=== PATIENT | male | born 1930 | race African-American/Black ===

== ENCOUNTER 2019-01-01 02:28 | Inpatient (IN) | payer BC, OTHER ==
[~2019-01-01] VITALS: Ht 175.3 cm; Wt 100.2 kg
[~2019-01-01 02:28] MED LIST: BREO INH; ERYT-109 PO; INCRUSE INH; IPRA0.2S51 NEB; METF-416 PO; MONT10TA24 PO; PRO-AIR; TAMS0.4C31 PO; [UNRECOGNIZED DRUG - CODE] PO
[2019-01-01] MEDS ORDERED: IPRATROPIUM BROMIDE (0.02%) 0.5MG/2.5ML NEB HHN STA (03:14)
[2019-01-01] MEDS ORDERED: ALBUTEROL (0.083%) 2.5MG/3ML NEB HHN STA (03:14)
[2019-01-01] MEDS ORDERED: FUROSEMIDE 40MG/4ML VIAL IV ONE (03:15)
[2019-01-01 04:11] LABS: CHLORIDE 109 mEq/L (98-107)
[2019-01-01 04:15] LABS: BASOPHILS % 0.5 % (0.0-2.0); EOSINOPHILS % 1.6 % (0.0-5.0); HEMATOCRIT. 48.1 % (42.0-52.0); LYMPHOCYTES % 16.1 % (20.0-50.0); MEAN CORPUSCULAR VOLUME 93.4 fL (80.0-94.0); MEAN PLATELET VOLUME 9.3 fl (7.4-10.4); MONOCYTES % 8.8 % (2.0-8.0); PLATELET 159 x1000/uL (130-400); RED BLOOD CELL COUNT 5.15 mill/uL (4.7-6.1); RED CELL DISTRIBUTION WIDTH 17.3 % (11.6-14.6)
[2019-01-01] MEDS ORDERED: MAGNESIUM/ALUMINUM HYDROXIDE/SIMETHICONE 30ML UDC PO PRN (10:45)
[2019-01-01] MEDS ORDERED: DEXTROSE 50% WATER 50ML SYRINGE IV PRN (10:45)
[2019-01-01] MEDS ORDERED: NA PHOS,M-B/NA PHOS,DI-BA ENEMA 118ML PR PRN (10:45)
[2019-01-01] MEDS ORDERED: GUAIFENESIN 200MG/10ML SUGAR FREE UDC PO PRN (10:45)
[2019-01-01] MEDS ORDERED: ONDANSETRON HCL 4MG/2ML INJ IV PRN (10:45)
[2019-01-01] MEDS ORDERED: HYDROCODONE/ACETAMINOPHEN 5/325MG TABLET PO PRN (10:45)
[2019-01-01] MEDS ORDERED: CLONIDINE 0.1MG TABLET PO PRN (10:45)
[2019-01-01] MEDS ORDERED: LORAZEPAM 0.5MG TABLET PO PRN (10:45)
[2019-01-01] MEDS ORDERED: ACETAMINOPHEN 325MG TABLET PO PRN (10:45)
[2019-01-01] MEDS ORDERED: ACETAMINOPHEN 650MG SUPP PR PRN (10:45)
[2019-01-01] MEDS: METHYLPREDNISOLONE SOD SUCC 40 MG/ML VIAL IV SCH ×2 (10:45→22:54)
[2019-01-01] MEDS ORDERED: DOCUSATE SODIUM 100MG CAPSULE PO PRN (10:45)
[2019-01-01] MEDS ORDERED: DIPHENHYDRAMINE 50MG/ML VIAL IV PRN (10:45)
[2019-01-01] MEDS ORDERED: IPRATROPIUM/ALBUTEROL 0.5-3(2.5)MG/3ML NEB INH PRN (10:45)
[2019-01-01 11:59] LABS: BG BASE EXCESS -0.4 mmol/L (-2.0-2.0); BG CARBOXYHEMOGLOBIN 1.6 % (0.5-1.5); BG DEOXYHEMOGLOBIN 12.7 % (0.0-5.0); BG HCO3 ACT 22.6 mmol/L (22.0-26.0); BG METHEMOGLOBIN 0.1 % (0.0-1.5); BG OXYGEN SATURATION 87.1 % (92.0-98.5); BG OXYHEMOGLOBIN 85.6 % (94.0-97.0); BG PCO2 32.6 mmHg (35.0-45.0); BG PH 7.458 (7.350-7.450); BG PO2 51.2 mmHg (75.0-100.0); BG SAMPLE SITE RIGHT RADIAL; BG TOTAL HEMOGLOBIN 15.6 g/dL (12.0-18.0); BG VENT MODE NASAL CANNULA
[2019-01-01] MEDS ORDERED: LACTULOSE 20G/30ML UDC PO NR (13:45)
[2019-01-01] MEDS ORDERED: LACTULOSE 20G/30ML UDC PO PRN (13:45)
[2019-01-01 18:03] LABS: CREATINE KINASE 81 IU/L (39-308)
[2019-01-01 18:04] LABS: CREATINE KINASE MB FRACTION 1.6 ng/mL (0.5-3.6)
[2019-01-01 20:17] LABS: INR 1.1; PROTHROMBIN TIME 11.4 sec (9.1-11.1)
[2019-01-01 21:00] VITALS: BP 157/92
[2019-01-01] MEDS: BLOOD SUGAR DIAGNOSTIC STRIP TEST SCH (21:00)
[2019-01-01] MEDS: GUAIFENESIN 600MG ER TABLET PO SCH (22:51)
[2019-01-01] MEDS: MONTELUKAST SODIUM 10MG TABLET PO SCH (22:52)
[2019-01-01] MEDS: AMLODIPINE 2.5MG TABLET PO SCH (22:53)
[2019-01-01] MEDS: INSULIN LISPRO 100 UNITS/ML SUBCUT SCH (22:57)
[2019-01-02] VITALS: BP 158/81
[2019-01-02 00:44] LABS: CREATINE KINASE 81 IU/L (39-308); CREATINE KINASE MB FRACTION 1.7 ng/mL (0.5-3.6)
[2019-01-02] MEDS ORDERED: CARV6.2548 PO (00:57)
[2019-01-02] MEDS ORDERED: ASPI-1159 PO (00:58)
[2019-01-02] MEDS ORDERED: CHOL100022 PO (01:00)
[2019-01-02] MEDS ORDERED: FURO-151 PO (01:02)
[2019-01-02] MEDS ORDERED: IPRA4AER INH (01:04)
[2019-01-02] MEDS: IPRATROPIUM/ALBUTEROL 0.5-3(2.5)MG/3ML NEB INH SCH ×4 (03:01→20:31)
[2019-01-02 04:00] VITALS: BP 155/93
[2019-01-02 04:44] LABS: CLARITY URINE CLEAR (CLEAR); COLOR URINE DARK YELLOW (YELLOW); KETONES URINE TRACE (NEGATIVE); LEUKOCYTE ESTERASE URINE TRACE (NEGATIVE); NITRITE URINE NEGATIVE (NEGATIVE); OCCULT BLOOD URINE NEGATIVE (NEGATIVE); PROTEIN URINE 1+ (NEGATIVE); SPECIFIC GRAVITY URINE 1.027 (1.005-1.030)
[2019-01-02 05:04] LABS: *BARBITURATES SCREEN URINE NEGATIVE (NEGATIVE); *BENZODIAZEPINES SCREEN URINE NEGATIVE (NEGATIVE); *COCAINE SCREEN URINE NEGATIVE (NEGATIVE)
[2019-01-02 05:05] LABS: *AMPHETAMINES SCREEN URINE NEGATIVE (NEGATIVE); CANNABINOID URINE SCREEN NEGATIVE (NEGATIVE); METHADONE URINE SCREEN NEGATIVE (NEGATIVE); OPIATES URINE SCREEN NEGATIVE (NEGATIVE); PHENCYCLIDINE URINE SCREEN NEGATIVE (NEGATIVE)
[2019-01-02] MEDS: PANTOPRAZOLE 40MG DR TABLET PO SCH (06:27)
[2019-01-02] MEDS: BLOOD SUGAR DIAGNOSTIC STRIP TEST SCH ×4 (06:34→21:38)
[2019-01-02 07:04] LABS: HEMATOCRIT. 48.7 % (42.0-52.0); HEMOGLOBIN. 16.2 g/dL (14.0-18.0); MEAN CORPUSCULAR HEMOGLOBIN 30.8 pg (28.0-32.0); MEAN CORPUSCULAR VOLUME 92.7 fL (80.0-94.0); MEAN PLATELET VOLUME 9.3 fl (7.4-10.4); PLATELET 176 x1000/uL (130-400); RED BLOOD CELL COUNT 5.26 mill/uL (4.7-6.1); RED CELL DISTRIBUTION WIDTH 17.1 % (11.6-14.6)
[2019-01-02] MEDS: INSULIN LISPRO 100 UNITS/ML SUBCUT SCH ×4 (07:50→21:00)
[2019-01-02 07:52] LABS: CHLORIDE 106 mEq/L (98-107)
[2019-01-02 07:59] LABS: HDL CHOLESTEROL 52 mg/dL (40-59)
[2019-01-02 08:00] VITALS: BP 159/89
[2019-01-02 08:02] LABS: LDL CHOLESTEROL 109 mg/dL (5-100)
[2019-01-02 08:03] LABS: T4 FREE 1.15 ng/dL (0.76-1.46)
[2019-01-02] MEDS: ASPIRIN 81MG EC TABLET PO SCH (08:19)
[2019-01-02] MEDS: GUAIFENESIN 600MG ER TABLET PO SCH ×2 (08:19→21:36)
[2019-01-02] MEDS: METHYLPREDNISOLONE SOD SUCC 40 MG/ML VIAL IV SCH ×2 (08:19→21:36)
[2019-01-02] MEDS: AMLODIPINE 2.5MG TABLET PO SCH ×2 (08:19→21:37)
[2019-01-02] MEDS: FUROSEMIDE 40MG/4ML VIAL IV SCH (08:22)
[2019-01-02] MEDS ORDERED: ENOXAPARIN 40MG/0.4ML SYR SUBCUT SCH (09:00)
[2019-01-02 12:00] VITALS: BP 153/76
[2019-01-02 13:34] LABS: PLATELET ESTIMATE NORMAL
[2019-01-02 17:58] VITALS: BP 163/94
[2019-01-02] MEDS: MONTELUKAST SODIUM 10MG TABLET PO SCH (18:13)
[2019-01-02 20:00] VITALS: BP 114/67
[2019-01-02] MEDS: ENOXAPARIN 30MG/0.3ML SYR SUBCUT SCH (21:37)
[2019-01-03] VITALS: BP 141/81
[2019-01-03] MEDS: IPRATROPIUM/ALBUTEROL 0.5-3(2.5)MG/3ML NEB INH SCH ×4 (02:29→22:33)
[2019-01-03 04:00] VITALS: BP 148/82
[2019-01-03] MEDS: PANTOPRAZOLE 40MG DR TABLET PO SCH (06:24)
[2019-01-03] MEDS: BLOOD SUGAR DIAGNOSTIC STRIP TEST SCH ×4 (06:24→21:00)
[2019-01-03] MEDS: INSULIN LISPRO 100 UNITS/ML SUBCUT SCH ×4 (07:50→22:01)
[2019-01-03 08:00] VITALS: BP 162/82
[2019-01-03 08:03] LABS: HEMOGLOBIN. 16.6 g/dL (14.0-18.0); MEAN CORPUSCULAR HEMOGLOBIN 30.9 pg (28.0-32.0); MEAN CORPUSCULAR VOLUME 93.1 fL (80.0-94.0); MEAN PLATELET VOLUME 9.8 fl (7.4-10.4); PLATELET 213 x1000/uL (130-400); RED BLOOD CELL COUNT 5.38 mill/uL (4.7-6.1); RED CELL DISTRIBUTION WIDTH 16.6 % (11.6-14.6)
[2019-01-03 08:25] LABS: CHLORIDE 103 mEq/L (98-107)
[2019-01-03 08:34] LABS: PHOSPHORUS 3.2 mg/dL (2.5-4.9)
[2019-01-03] MEDS: GUAIFENESIN 600MG ER TABLET PO SCH ×2 (09:06→22:02)
[2019-01-03] MEDS: ASPIRIN 81MG EC TABLET PO SCH (09:06)
[2019-01-03] MEDS: ENOXAPARIN 30MG/0.3ML SYR SUBCUT SCH ×2 (09:07→22:04)
[2019-01-03] MEDS: AMLODIPINE 2.5MG TABLET PO SCH ×2 (09:07→22:03)
[2019-01-03] MEDS: METHYLPREDNISOLONE SOD SUCC 40 MG/ML VIAL IV SCH ×2 (09:07→22:02)
[2019-01-03] MEDS: FUROSEMIDE 40MG/4ML VIAL IV SCH (09:07)
[2019-01-03 12:00] VITALS: BP 153/82
[2019-01-03 16:00] VITALS: BP 120/75
[2019-01-03 16:45] LABS: BG BASE EXCESS 3.3 mmol/L (-2.0-2.0); BG CARBOXYHEMOGLOBIN 1.2 % (0.5-1.5); BG DEOXYHEMOGLOBIN 9.8 % (0.0-5.0); BG FRACTION INSPIRED OXYGEN 32; BG HCO3 ACT 26.5 mmol/L (22.0-26.0); BG METHEMOGLOBIN 0.4 % (0.0-1.5); BG OXYHEMOGLOBIN 88.6 % (94.0-97.0); BG PCO2 36.3 mmHg (35.0-45.0); BG PH 7.481 (7.350-7.450); BG PO2 57.1 mmHg (75.0-100.0); BG SAMPLE SITE RIGHT RADIAL; BG TOTAL HEMOGLOBIN 17.2 g/dL (12.0-18.0); BG VENT MODE NASAL CANNULA
[2019-01-03] MEDS: MONTELUKAST SODIUM 10MG TABLET PO SCH (17:42)
[2019-01-03 20:00] VITALS: BP 151/88
[2019-01-03 20:38] LABS: PLATELET ESTIMATE NORMAL
[2019-01-04 00:08] VITALS: BP 161/80
[2019-01-04] MEDS: IPRATROPIUM/ALBUTEROL 0.5-3(2.5)MG/3ML NEB INH SCH ×2 (02:35→09:30)
[2019-01-04 04:00] VITALS: BP 144/87
[2019-01-04 06:18] LABS: HEMATOCRIT 46.9 % (42.0-52.0); HEMOGLOBIN 15.8 g/dL (14.0-18.0); MEAN CORPUSCULAR HEMOGLOBIN 30.9 pg (28.0-32.0); MEAN CORPUSCULAR VOLUME 91.8 fL (80.0-94.0); PLATELET 223 x1000/uL (130-400); RED BLOOD CELL COUNT 5.11 mill/uL (4.7-6.1); RED CELL DISTRIBUTION WIDTH 16.9 % (11.6-14.6)
[2019-01-04 06:21] LABS: CHLORIDE 104 mEq/L (98-107)
[2019-01-04] MEDS: BLOOD SUGAR DIAGNOSTIC STRIP TEST SCH ×2 (06:21→12:20)
[2019-01-04] MEDS: PANTOPRAZOLE 40MG DR TABLET PO SCH (06:21)
[2019-01-04] MEDS: INSULIN LISPRO 100 UNITS/ML SUBCUT SCH ×2 (07:50→12:50)
[2019-01-04 08:00] VITALS: BP 160/91
[2019-01-04] MEDS: ASPIRIN 81MG EC TABLET PO SCH (08:41)
[2019-01-04] MEDS: GUAIFENESIN 600MG ER TABLET PO SCH (08:41)
[2019-01-04] MEDS: FUROSEMIDE 40MG/4ML VIAL IV SCH (08:42)
[2019-01-04] MEDS: ENOXAPARIN 30MG/0.3ML SYR SUBCUT SCH (08:42)
[2019-01-04] MEDS: METHYLPREDNISOLONE SOD SUCC 40 MG/ML VIAL IV SCH (08:42)
[2019-01-04] MEDS: AMLODIPINE 2.5MG TABLET PO SCH (08:42)
[2019-01-04 12:00] VITALS: BP 157/89
[2019-01-04] MEDS ORDERED: LOSARTAN POTASSIUM 50 MG TABLET PO SCH (15:00)
[2019-01-04 15:49] VITALS: BP 155/88
[2019-01-04 15:59] VITALS: BP 155/88
== END 2019-01-04 17:46 | disposition home or self-care (01) | DRG 291 ==
LOC: ER 02:28 → 6WST 05:40 → ENRESERV 19:33
PROVIDERS: ADMIT Internal Medicine; ATTEND Ophthalmology
DX: I11.0 Hypertensive heart disease with heart failure (principal); J18.9 Pneumonia, unspecified organism; J44.1 Chronic obstructive pulmonary disease with (acute) exacerbation; I31.3 Pericardial effusion (noninflammatory); J44.0 Chronic obstructive pulmonary disease with (acute) lower respiratory infection; I50.33 Acute on chronic diastolic (congestive) heart failure; Z99.81 Dependence on supplemental oxygen; E11.9 Type 2 diabetes mellitus without complications; E86.0 Dehydration; R09.02 Hypoxemia; I27.20 Pulmonary hypertension, unspecified; I77.810 Thoracic aortic ectasia; Z96.659 Presence of unspecified artificial knee joint; Z88.2 Allergy status to sulfonamides; Z79.84 Long term (current) use of oral hypoglycemic drugs; Z79.899 Other long term (current) drug therapy
CPT/HCPCS: 36415; 36600; 71045; 74018; 80048; 80061; 80305; 82375; 82550; 82553; 82805; 82962; 83036; 83735; 83880; 84100; 84153; 84439; 84443; 84484; 85027; 87070; 93005; 93306; 93970; 94640; 96374; 97162; 99291; J1650; J1815; J1940; J2920; J7611; J7620; G0103

== ENCOUNTER 2019-03-27 10:07 | Inpatient (IN) | payer BC, OTHER ==
[~2019-03-27] VITALS: Ht 180.3 cm; Wt 93.4 kg
[~2019-03-27 10:07] MED LIST changes: +ASPI-1393 PO; +CHOL100022 PO; -ERYT-109 PO; +IPRA4AER INH
[2019-03-27] MEDS ORDERED: NITROGLYCERIN OINT 1GM/INCH UDPKT TD ONE (10:30)
[2019-03-27] MEDS ORDERED: ASPIRIN 325MG TABLET PO ONE (10:30)
[2019-03-27] MEDS ORDERED: FUROSEMIDE 40MG/4ML VIAL IV ONE (10:30)
[2019-03-27 10:55] LABS: HEMATOCRIT. 47.5 % (42.0-52.0); HEMOGLOBIN. 15.6 g/dL (14.0-18.0); MEAN CORPUSCULAR HEMOGLOBIN 30.6 pg (28.0-32.0); MEAN CORPUSCULAR VOLUME 93.3 fL (80.0-94.0); MEAN PLATELET VOLUME 8.8 fl (7.4-10.4); PLATELET 217 x1000/uL (130-400); RED BLOOD CELL COUNT 5.09 mill/uL (4.7-6.1); RED CELL DISTRIBUTION WIDTH 17.7 % (11.6-14.6)
[2019-03-27 10:59] LABS: CHLORIDE 106 mEq/L (98-107); INR 1.1; PROTHROMBIN TIME 11.1 sec (9.6-11.0)
[2019-03-27] MEDS ORDERED: SODIUM CHLORIDE 0.9% 500 ML IV ONE (11:12)
[2019-03-27] MEDS ORDERED: AZITHROMYCIN 500 MG in DEXT 5% WATER 250 ML IV ONE (11:15)
[2019-03-27] MEDS ORDERED: CEFTRIAXONE 2 G PREMIX 50 ML IV ONE (11:15)
[2019-03-27 11:36] LABS: PLATELET ESTIMATE NORMAL
[2019-03-27 12:01] LABS: CLARITY URINE CLEAR (CLEAR); COLOR URINE YELLOW (YELLOW); KETONES URINE NEGATIVE (NEGATIVE); LEUKOCYTE ESTERASE URINE NEGATIVE (NEGATIVE); NITRITE URINE NEGATIVE (NEGATIVE); OCCULT BLOOD URINE NEGATIVE (NEGATIVE); PROTEIN URINE NEGATIVE (NEGATIVE); UROBILINOGEN URINE 0.2 E.U./dL (0.2-1.0)
[2019-03-27 13:00] VITALS: BP 109/68
[2019-03-27 13:19] VITALS: BP 109/68
[2019-03-27] MEDS ORDERED: DIPHENHYDRAMINE 50MG/ML VIAL IV PRN (13:30)
[2019-03-27] MEDS ORDERED: ACETAMINOPHEN 650MG SUPP PR PRN (13:30)
[2019-03-27] MEDS ORDERED: ONDANSETRON HCL 4MG/2ML INJ IV PRN (13:30)
[2019-03-27] MEDS ORDERED: LORAZEPAM 0.5MG TABLET PO PRN (13:30)
[2019-03-27] MEDS ORDERED: MAGNESIUM/ALUMINUM HYDROXIDE/SIMETHICONE 30ML UDC PO PRN (13:30)
[2019-03-27] MEDS ORDERED: HYDROCODONE/ACETAMINOPHEN 5/325MG TABLET PO PRN (13:30)
[2019-03-27] MEDS ORDERED: IPRATROPIUM/ALBUTEROL 0.5-3(2.5)MG/3ML NEB INH PRN (13:30)
[2019-03-27] MEDS ORDERED: CLONIDINE 0.1MG TABLET PO PRN (13:30)
[2019-03-27] MEDS ORDERED: NA PHOS,M-B/NA PHOS,DI-BA ENEMA 118ML PR PRN (13:30)
[2019-03-27] MEDS ORDERED: DOCUSATE SODIUM 100MG CAPSULE PO PRN (13:30)
[2019-03-27 13:58] LABS: *AMPHETAMINES SCREEN URINE NEGATIVE (NEGATIVE); *BARBITURATES SCREEN URINE NEGATIVE (NEGATIVE); *BENZODIAZEPINES SCREEN URINE NEGATIVE (NEGATIVE); *COCAINE SCREEN URINE NEGATIVE (NEGATIVE); CANNABINOID URINE SCREEN NEGATIVE (NEGATIVE)
[2019-03-27 13:59] LABS: METHADONE URINE SCREEN NEGATIVE (NEGATIVE); OPIATES URINE SCREEN NEGATIVE (NEGATIVE); PHENCYCLIDINE URINE SCREEN NEGATIVE (NEGATIVE)
[2019-03-27 16:00] VITALS: BP 104/57
[2019-03-27] MEDS ORDERED: PRED10TA PO (16:09)
[2019-03-27] MEDS ORDERED: ERGO2000 PO (16:09)
[2019-03-27] MEDS ORDERED: IPRA3AMP31 IH (16:09)
[2019-03-27] MEDS ORDERED: FURO40TA5 MT (16:09)
[2019-03-27] MEDS ORDERED: CARV6.2548 MT (16:09)
[2019-03-27 16:16] LABS: CREATINE KINASE 125 IU/L (39-308)
[2019-03-27 16:17] LABS: CREATINE KINASE MB FRACTION 2.9 ng/mL (0.5-3.6)
[2019-03-27] MEDS: FUROSEMIDE 40MG/4ML VIAL IV SCH (16:35)
[2019-03-27] MEDS: ENOXAPARIN 40MG/0.4ML SYR SUBCUT SCH (16:36)
[2019-03-27 20:00] VITALS: BP 120/71
[2019-03-27] MEDS: ACETAMINOPHEN 325MG TABLET PO PRN (20:18)
[2019-03-27] MEDS: GUAIFENESIN 200MG/10ML SUGAR FREE UDC PO PRN (20:18)
[2019-03-27] MEDS ORDERED: DEXTROSE 50% WATER 50ML SYRINGE IV PRN (23:00)
[2019-03-27] MEDS: BLOOD SUGAR DIAGNOSTIC STRIP TEST SCH (23:27)
[2019-03-27 23:31] LABS: CREATINE KINASE MB FRACTION 2.1 ng/mL (0.5-3.6)
[2019-03-28] VITALS: BP 132/73
[2019-03-28] MEDS: IPRATROPIUM/ALBUTEROL 0.5-3(2.5)MG/3ML NEB INH SCH ×4 (01:11→22:09)
[2019-03-28 04:00] VITALS: BP 108/58
[2019-03-28] MEDS: BLOOD SUGAR DIAGNOSTIC STRIP TEST SCH ×4 (06:09→20:18)
[2019-03-28] MEDS: FUROSEMIDE 40MG/4ML VIAL IV SCH (06:15)
[2019-03-28 07:13] LABS: BASOPHILS % 0.4 % (0.0-2.0); EOSINOPHILS % 0.8 % (0.0-5.0); HEMATOCRIT. 46.5 % (42.0-52.0); HEMOGLOBIN. 15.4 g/dL (14.0-18.0); LYMPHOCYTES % 12.7 % (20.0-50.0); MEAN CORPUSCULAR HEMOGLOBIN 30.9 pg (28.0-32.0); MEAN PLATELET VOLUME 8.9 fl (7.4-10.4); MONOCYTES % 5.6 % (2.0-8.0); NEUTROPHILS % 80.5 % (40.0-76.0); PLATELET 198 x1000/uL (130-400); RED CELL DISTRIBUTION WIDTH 17.5 % (11.6-14.6)
[2019-03-28 07:21] LABS: CHLORIDE 105 mEq/L (98-107)
[2019-03-28 07:34] LABS: HDL CHOLESTEROL 50 mg/dL (40-59)
[2019-03-28 07:36] LABS: LDL CHOLESTEROL 93 mg/dL (5-100)
[2019-03-28 07:37] LABS: CREATINE KINASE 59 IU/L (39-308)
[2019-03-28 08:00] VITALS: BP 106/86
[2019-03-28] MEDS: ACETAMINOPHEN 325MG TABLET PO PRN (09:46)
[2019-03-28 12:00] VITALS: BP 157/84
[2019-03-28] MEDS ORDERED: AZITHROMYCIN 500 MG in DEXT 5% WATER 250 ML IV SCH (12:00)
[2019-03-28] MEDS ORDERED: CEFTRIAXONE 1 G PREMIX 50 ML IV SCH (13:30)
[2019-03-28] MEDS ORDERED: FUROSEMIDE 40MG/4ML VIAL IVP NR (14:30)
[2019-03-28 16:00] VITALS: BP 102/61
[2019-03-28] MEDS: FUROSEMIDE 100MG/10ML VIAL IV SCH (17:02)
[2019-03-28] MEDS: ENOXAPARIN 40MG/0.4ML SYR SUBCUT SCH (17:02)
[2019-03-28] MEDS: POTASSIUM CHLORIDE 20MEQ TABLET SR PO SCH (17:02)
[2019-03-28 20:00] VITALS: BP 131/70
[2019-03-29] VITALS: BP 159/86
[2019-03-29] MEDS: IPRATROPIUM/ALBUTEROL 0.5-3(2.5)MG/3ML NEB INH SCH ×4 (01:02→20:47)
[2019-03-29 04:00] VITALS: BP 149/80
[2019-03-29] MEDS: BLOOD SUGAR DIAGNOSTIC STRIP TEST SCH ×4 (05:55→20:35)
[2019-03-29] MEDS: FUROSEMIDE 100MG/10ML VIAL IV SCH ×2 (06:19→17:44)
[2019-03-29 06:30] LABS: HEMATOCRIT 47.1 % (42.0-52.0); HEMOGLOBIN 15.6 g/dL (14.0-18.0); MEAN CORPUSCULAR HEMOGLOBIN 30.8 pg (28.0-32.0); MEAN CORPUSCULAR VOLUME 92.9 fL (80.0-94.0); PLATELET 201 x1000/uL (130-400); RED BLOOD CELL COUNT 5.07 mill/uL (4.7-6.1); RED CELL DISTRIBUTION WIDTH 17.7 % (11.6-14.6)
[2019-03-29 07:41] LABS: CHLORIDE 103 mEq/L (98-107)
[2019-03-29] MEDS ORDERED: IOHEXOL-350 100 ML BOTTLE ONE (07:55)
[2019-03-29 08:00] VITALS: BP 137/75
[2019-03-29] MEDS: POTASSIUM CHLORIDE 20MEQ TABLET SR PO SCH ×2 (08:15→17:44)
[2019-03-29 12:00] VITALS: BP 119/75
[2019-03-29] MEDS: AZITHROMYCIN 500 MG in DEXT 5% WATER 250 ML IV SCH (12:20)
[2019-03-29] MEDS ORDERED: LORAZEPAM 0.5MG TABLET PO PRN (13:45)
[2019-03-29] MEDS: CEFTRIAXONE 1 G PREMIX 50 ML IV SCH (14:41)
[2019-03-29] MEDS: AMLODIPINE 5MG TABLET PO SCH (15:09)
[2019-03-29 16:00] VITALS: BP 125/78
[2019-03-29 16:31] LABS: BG BASE EXCESS -0.1 mmol/L (-2.0-2.0); BG CARBOXYHEMOGLOBIN 0.7 % (0.5-1.5); BG DEOXYHEMOGLOBIN 16.5 % (0.0-5.0); BG FRACTION INSPIRED OXYGEN 21; BG HCO3 ACT 23.6 mmol/L (22.0-26.0); BG METHEMOGLOBIN 0.1 % (0.0-1.5); BG OXYGEN SATURATION 83.4 % (92.0-98.5); BG OXYHEMOGLOBIN 82.7 % (94.0-97.0); BG PH 7.434 (7.350-7.450); BG PO2 47.9 mmHg (75.0-100.0); BG SAMPLE SITE RIGHT RADIAL; BG TOTAL HEMOGLOBIN 16.9 g/dL (12.0-18.0); BG VENT MODE ROOM AIR
[2019-03-29] MEDS: METOLAZONE 5MG TABLET PO SCH (17:44)
[2019-03-29] MEDS: ENOXAPARIN 40MG/0.4ML SYR SUBCUT SCH (17:44)
[2019-03-29 20:00] VITALS: BP 134/73
[2019-03-29] MEDS: GUAIFENESIN 200MG/10ML SUGAR FREE UDC PO PRN (20:25)
[2019-03-30] VITALS: BP 132/77
[2019-03-30] MEDS: IPRATROPIUM/ALBUTEROL 0.5-3(2.5)MG/3ML NEB INH SCH ×3 (01:05→20:32)
[2019-03-30 04:00] VITALS: BP 123/78
[2019-03-30 06:41] LABS: BASOPHILS % 0.6 % (0.0-2.0); EOSINOPHILS % 0.9 % (0.0-5.0); HEMATOCRIT. 50.3 % (42.0-52.0); HEMOGLOBIN. 16.8 g/dL (14.0-18.0); LYMPHOCYTES % 13.7 % (20.0-50.0); MEAN CORPUSCULAR HEMOGLOBIN 31.1 pg (28.0-32.0); MEAN CORPUSCULAR VOLUME 92.9 fL (80.0-94.0); MEAN PLATELET VOLUME 8.7 fl (7.4-10.4); MONOCYTES % 8.2 % (2.0-8.0); NEUTROPHILS % 76.6 % (40.0-76.0); PLATELET 231 x1000/uL (130-400); RED BLOOD CELL COUNT 5.41 mill/uL (4.7-6.1); RED CELL DISTRIBUTION WIDTH 17.1 % (11.6-14.6)
[2019-03-30 06:43] LABS: CHLORIDE 99 mEq/L (98-107)
[2019-03-30] MEDS: BLOOD SUGAR DIAGNOSTIC STRIP TEST SCH ×4 (06:49→20:30)
[2019-03-30] MEDS: FUROSEMIDE 100MG/10ML VIAL IV SCH ×2 (06:49→17:21)
[2019-03-30 08:00] VITALS: BP 107/66
[2019-03-30] MEDS: POTASSIUM CHLORIDE 20MEQ TABLET SR PO SCH ×2 (08:48→17:21)
[2019-03-30] MEDS: METOLAZONE 5MG TABLET PO SCH (08:48)
[2019-03-30] MEDS: AMLODIPINE 5MG TABLET PO SCH (08:51)
[2019-03-30 12:00] VITALS: BP 120/76
[2019-03-30] MEDS: AZITHROMYCIN 500 MG in DEXT 5% WATER 250 ML IV SCH (12:38)
[2019-03-30] MEDS: CEFTRIAXONE 1 G PREMIX 50 ML IV SCH (13:52)
[2019-03-30 16:00] VITALS: BP 121/64
[2019-03-30] MEDS: ENOXAPARIN 40MG/0.4ML SYR SUBCUT SCH (17:22)
[2019-03-30 20:00] VITALS: BP 110/92
[2019-03-31] VITALS: BP 104/59
[2019-03-31] MEDS: IPRATROPIUM/ALBUTEROL 0.5-3(2.5)MG/3ML NEB INH SCH ×3 (02:14→14:51)
[2019-03-31 04:00] VITALS: BP 104/59
[2019-03-31] MEDS: ACETAMINOPHEN 325MG TABLET PO PRN (04:24)
[2019-03-31 06:05] LABS: BASOPHILS % 0.6 % (0.0-2.0); EOSINOPHILS % 1.1 % (0.0-5.0); LYMPHOCYTES % 12.8 % (20.0-50.0); MEAN CORPUSCULAR HEMOGLOBIN 30.9 pg (28.0-32.0); MEAN CORPUSCULAR VOLUME 92.3 fL (80.0-94.0); MEAN PLATELET VOLUME 8.8 fl (7.4-10.4); MONOCYTES % 6.7 % (2.0-8.0); NEUTROPHILS % 78.8 % (40.0-76.0); PLATELET 241 x1000/uL (130-400); RED BLOOD CELL COUNT 5.52 mill/uL (4.7-6.1); RED CELL DISTRIBUTION WIDTH 17.5 % (11.6-14.6)
[2019-03-31 06:27] LABS: CHLORIDE 95 mEq/L (98-107)
[2019-03-31] MEDS: FUROSEMIDE 100MG/10ML VIAL IV SCH (06:40)
[2019-03-31] MEDS: BLOOD SUGAR DIAGNOSTIC STRIP TEST SCH ×2 (06:40→12:13)
[2019-03-31 08:00] VITALS: BP 101/60
[2019-03-31] MEDS ORDERED: AZITHROMYCIN 500 MG TABLET PO SCH (09:00)
[2019-03-31] MEDS: POTASSIUM CHLORIDE 20MEQ TABLET SR PO SCH (09:19)
[2019-03-31] MEDS: AMLODIPINE 5MG TABLET PO SCH (09:20)
[2019-03-31] MEDS: METOLAZONE 5MG TABLET PO SCH (09:20)
[2019-03-31 12:00] VITALS: BP 97/60
[2019-03-31] MEDS: CEFTRIAXONE 1 G PREMIX 50 ML IV SCH (13:33)
[2019-03-31 15:29] VITALS: BP 103/51
[2019-03-31 16:00] VITALS: BP 107/55
== END 2019-03-31 17:00 | disposition home or self-care (01) | DRG 291 ==
LOC: ER 10:07 → 5WST 11:30 → EDBEDREQ 11:32 → ENRESERV 11:40 → ER 12:24
PROVIDERS: ADMIT Internal Medicine; ATTEND Internal Medicine
DX: I11.0 Hypertensive heart disease with heart failure (principal); J18.9 Pneumonia, unspecified organism; J96.20 Acute and chronic respiratory failure, unspecified whether with hypoxia or hypercapnia; J44.0 Chronic obstructive pulmonary disease with (acute) lower respiratory infection; E46 Unspecified protein-calorie malnutrition; E87.2 Acidosis; J44.1 Chronic obstructive pulmonary disease with (acute) exacerbation; J81.1 Chronic pulmonary edema; I50.33 Acute on chronic diastolic (congestive) heart failure; E86.0 Dehydration; I27.20 Pulmonary hypertension, unspecified; I71.2 Thoracic aortic aneurysm, without rupture; E11.9 Type 2 diabetes mellitus without complications; E78.5 Hyperlipidemia, unspecified; I25.10 Atherosclerotic heart disease of native coronary artery without angina pectoris; I49.3 Ventricular premature depolarization; Z96.653 Presence of artificial knee joint, bilateral; N40.0 Benign prostatic hyperplasia without lower urinary tract symptoms; Z72.0 Tobacco use; Z79.84 Long term (current) use of oral hypoglycemic drugs; I25.2 Old myocardial infarction; Z99.81 Dependence on supplemental oxygen; Z79.899 Other long term (current) drug therapy; Z88.2 Allergy status to sulfonamides; Z79.82 Long term (current) use of aspirin; Z68.28 Body mass index [BMI] 28.0-28.9, adult
CPT/HCPCS: 36415; 36600; 71045; 71275; 80048; 80061; 80305; 82375; 82550; 82553; 82805; 82962; 83605; 83735; 83880; 84132; 84439; 84443; 84484; 85027; 85379; 93005; 93970; 96361; 96374; 97162; 99285; C1893; J0456; J0696; J1650; J1940; J7040; J7050; J7060; J7620; Q9967

== ENCOUNTER 2019-07-25 13:34 | Inpatient (IN) | payer BC ==
[2019-07-25] VITALS (8 sets, daily range): BP systolic 98–127; BP diastolic 53–67
[~2019-07-25] VITALS: Ht 170.2 cm; Wt 103.0 kg
[~2019-07-25 13:34] MED LIST changes: -BREO INH; +CARV6.2548 MT; -CHOL100022 PO; +ERGO500013 PO; +FLUT1BLS IH; -IPRA0.2S51 NEB; -IPRA4AER INH; -TAMS0.4C31 PO; +THE3 MT; -[UNRECOGNIZED DRUG - CODE] PO
[2019-07-25] MEDS ORDERED: METHYLPREDNISOLONE SOD SUCC 125 MG/2 ML VIAL IV STA (14:08)
[2019-07-25] MEDS ORDERED: IPRATROPIUM BROMIDE (0.02%) 0.5MG/2.5ML NEB HHN STA (14:08)
[2019-07-25] MEDS ORDERED: ALBUTEROL (0.083%) 2.5MG/3ML NEB HHN STA (14:08)
[2019-07-25] MEDS ORDERED: MAGNESIUM 2 G PREMIX 50 ML IV ONE (14:15)
[2019-07-25 15:00] LABS: INR 1.5; PROTHROMBIN TIME 15.1 sec (9.6-11.0)
[2019-07-25 15:32] LABS: CHLORIDE 97 mEq/L (98-107)
[2019-07-25 15:34] LABS: BG BILEVEL POS AIRWAY PRESSURE 15/5; BG CARBOXYHEMOGLOBIN 0.4 % (0.5-1.5); BG DEOXYHEMOGLOBIN 0.3 % (0.0-5.0); BG METHEMOGLOBIN 0.4 % (0.0-1.5); BG OXYGEN SATURATION 99.7 % (92.0-98.5); BG OXYHEMOGLOBIN 98.9 % (94.0-97.0); BG PCO2 25.4 mmHg (35.0-45.0); BG PH 7.594 (7.350-7.450); BG PO2 405.2 mmHg (75.0-100.0); BG SAMPLE SITE RIGHT BRACHIAL; BG TOTAL HEMOGLOBIN 16.1 g/dL (12.0-18.0); BG VENT MODE MASK - BIPAP; BG VENT RATE 16 set
[2019-07-25 15:38] LABS: BASOPHILS % 0.2 % (0.0-2.0); EOSINOPHILS % 0.4 % (0.0-5.0); HEMATOCRIT. 50.1 % (42.0-52.0); HEMOGLOBIN. 16.7 g/dL (14.0-18.0); LYMPHOCYTES % 15.5 % (20.0-50.0); MEAN CORPUSCULAR HEMOGLOBIN 31.9 pg (28.0-32.0); MEAN CORPUSCULAR VOLUME 95.7 fL (80.0-94.0); MEAN PLATELET VOLUME 8.5 fl (7.4-10.4); NEUTROPHILS % 73.9 % (40.0-76.0); PLATELET 109 x1000/uL (130-400); RED BLOOD CELL COUNT 5.23 mill/uL (4.7-6.1); RED CELL DISTRIBUTION WIDTH 16.9 % (11.6-14.6)
[2019-07-25] MEDS ORDERED: SODIUM CHLORIDE 0.9% 1,000 ML IV NR (16:07)
[2019-07-25] MEDS ORDERED: KCL 10MEQ/50ML PREMIX 50 ML IV NR ×2 (16:15→17:15)
[2019-07-25] MEDS ORDERED: ALBUMIN HUMAN 12.5G/250ML (5%) IV PRN (16:45)
[2019-07-25] MEDS ORDERED: APIXABAN 5 MG TABLET PO SCH (17:00)
[2019-07-25] MEDS ORDERED: GUAIFENESIN 200MG/10ML SUGAR FREE UDC PO PRN (17:45)
[2019-07-25] MEDS ORDERED: FUROSEMIDE 40MG/4ML VIAL IV SCH (17:45)
[2019-07-25] MEDS ORDERED: NA PHOS,M-B/NA PHOS,DI-BA ENEMA 118ML PR PRN (17:45)
[2019-07-25] MEDS ORDERED: MAGNESIUM/ALUMINUM HYDROXIDE/SIMETHICONE 30ML UDC PO PRN (17:45)
[2019-07-25] MEDS ORDERED: HYDROCODONE/ACETAMINOPHEN 5/325MG TABLET PO PRN (17:45)
[2019-07-25] MEDS ORDERED: CLONIDINE 0.1MG TABLET PO PRN (17:45)
[2019-07-25] MEDS ORDERED: DOCUSATE SODIUM 100MG CAPSULE PO PRN (17:45)
[2019-07-25] MEDS ORDERED: ONDANSETRON HCL 4MG/2ML INJ IV PRN (17:45)
[2019-07-25] MEDS ORDERED: IPRATROPIUM/ALBUTEROL 0.5-3(2.5)MG/3ML NEB NEB PRN (17:45)
[2019-07-25] MEDS ORDERED: ACETAMINOPHEN 650MG SUPP PR PRN (17:45)
[2019-07-25] MEDS ORDERED: LORAZEPAM 0.5MG TABLET PO PRN (17:45)
[2019-07-25] MEDS ORDERED: DEXTROSE 50% WATER 50ML SYRINGE IV PRN ×2 (17:45→23:15)
[2019-07-25] MEDS ORDERED: ACETAMINOPHEN 325MG TABLET PO PRN (17:45)
[2019-07-25 18:04] LABS: BG BILEVEL POS AIRWAY PRESSURE 15/5; BG CARBOXYHEMOGLOBIN 0.7 % (0.5-1.5); BG DEOXYHEMOGLOBIN 0.7 % (0.0-5.0); BG HCO3 ACT 20.8 mmol/L (22.0-26.0); BG METHEMOGLOBIN 0.4 % (0.0-1.5); BG OXYGEN SATURATION 99.3 % (92.0-98.5); BG OXYHEMOGLOBIN 98.2 % (94.0-97.0); BG PH 7.488 (7.350-7.450); BG PO2 202.9 mmHg (75.0-100.0); BG SAMPLE SITE RIGHT BRACHIAL; BG TOTAL HEMOGLOBIN 16.2 g/dL (12.0-18.0); BG VENT MODE MASK - BIPAP; BG VENT RATE 16 set
[2019-07-25 18:09] LABS: CLARITY URINE CLEAR (CLEAR); COLOR URINE YELLOW (YELLOW); KETONES URINE TRACE (NEGATIVE); LEUKOCYTE ESTERASE URINE NEGATIVE (NEGATIVE); NITRITE URINE NEGATIVE (NEGATIVE); OCCULT BLOOD URINE NEGATIVE (NEGATIVE); PH URINE 5.5 (4.5-8.0); PROTEIN URINE NEGATIVE (NEGATIVE); SPECIFIC GRAVITY URINE 1.013 (1.005-1.030)
[2019-07-25 18:38] LABS: *AMPHETAMINES SCREEN URINE NEGATIVE (NEGATIVE); *BARBITURATES SCREEN URINE NEGATIVE (NEGATIVE); *BENZODIAZEPINES SCREEN URINE NEGATIVE (NEGATIVE); *COCAINE SCREEN URINE NEGATIVE (NEGATIVE); CANNABINOID URINE SCREEN NEGATIVE (NEGATIVE); METHADONE URINE SCREEN NEGATIVE (NEGATIVE); OPIATES URINE SCREEN NEGATIVE (NEGATIVE); PHENCYCLIDINE URINE SCREEN NEGATIVE (NEGATIVE)
[2019-07-25] MEDS ORDERED: METHYLPREDNISOLONE SOD SUCC 125 MG/2 ML VIAL IV SCH (21:00)
[2019-07-25] MEDS ORDERED: POTASSIUM CHLORIDE 20MEQ/PACKET PO SCH (23:15)
[2019-07-26] VITALS (92 sets, daily range): BP systolic 61–132; BP diastolic 29–99
[2019-07-26] MEDS ORDERED: IPRATROPIUM/ALBUTEROL 0.5-3(2.5)MG/3ML NEB HHN SCH
[2019-07-26] MEDS ORDERED: FAMOTIDINE 20MG/2ML VIAL IV SCH
[2019-07-26] MEDS ORDERED: INSULIN LISPRO 100 UNITS/ML SUBCUT SCH
[2019-07-26] MEDS: LOSARTAN POTASSIUM 25 MG TABLET PO SCH ×2 (00:15→08:22)
[2019-07-26] MEDS: IPRATROPIUM/ALBUTEROL 0.5-3(2.5)MG/3ML NEB HHN SCH ×5 (00:20→21:01)
[2019-07-26] MEDS: BLOOD SUGAR DIAGNOSTIC STRIP TEST SCH ×5 (00:27→21:35)
[2019-07-26] MEDS ORDERED: DILTIAZEM HCL 125 MG in DEXT 5% WATER 100 ML IV PRN (00:30)
[2019-07-26] MEDS: PIPERACILLIN/TAZOBACTAM 2.25 G in DEXTROSE 5% WATER 50 ML IV SCH ×4 (00:46→18:15)
[2019-07-26] MEDS ORDERED: VANCOMYCIN 1 G PREMIX 200 ML IV SCH ×2 (01:00)
[2019-07-26] MEDS ORDERED: POTA25TA8 PO (01:52)
[2019-07-26] MEDS ORDERED: APIX5TAB MT (01:52)
[2019-07-26] MEDS ORDERED: CARSR90 MT (01:52)
[2019-07-26] MEDS ORDERED: FURO80TA3 MT (01:52)
[2019-07-26 02:22] LABS: CREATINE KINASE MB FRACTION 2.1 ng/mL (0.5-3.6)
[2019-07-26] MEDS: BUDESONIDE 0.5MG/2ML NEB HHN SCH ×4 (04:19→21:01)
[2019-07-26 05:27] LABS: HEMATOCRIT. 47.1 % (42.0-52.0); HEMOGLOBIN. 15.8 g/dL (14.0-18.0); MEAN CORPUSCULAR VOLUME 95.2 fL (80.0-94.0); MEAN PLATELET VOLUME 9.5 fl (7.4-10.4); PLATELET 127 x1000/uL (130-400); RED BLOOD CELL COUNT 4.94 mill/uL (4.7-6.1); RED CELL DISTRIBUTION WIDTH 16.6 % (11.6-14.6)
[2019-07-26 05:46] LABS: CHLORIDE 98 mEq/L (98-107)
[2019-07-26] MEDS: METHYLPREDNISOLONE SOD SUCC 40 MG/ML VIAL IV SCH ×3 (05:46→21:40)
[2019-07-26 05:57] LABS: CREATINE KINASE 84 IU/L (39-308); CREATINE KINASE MB FRACTION 1.8 ng/mL (0.5-3.6); T4 FREE 1.18 ng/dL (0.76-1.46)
[2019-07-26] MEDS ORDERED: BLOOD SUGAR DIAGNOSTIC STRIP TEST SCH (07:50)
[2019-07-26] MEDS: INSULIN LISPRO 100 UNITS/ML SUBCUT SCH ×4 (08:20→21:40)
[2019-07-26] MEDS: POTASSIUM CHLORIDE 20MEQ TABLET SR PO SCH (08:22)
[2019-07-26] MEDS: ASPIRIN 81MG EC TABLET PO SCH (08:22)
[2019-07-26] MEDS: APIXABAN 5 MG TABLET PO SCH ×2 (08:23→18:14)
[2019-07-26] MEDS: FUROSEMIDE 40MG TABLET PO SCH ×2 (08:23)
[2019-07-26] MEDS: FAMOTIDINE 20MG/2ML VIAL IV SCH (08:23)
[2019-07-26] MEDS: CARVEDILOL 6.25 MG TABLET PO SCH ×3 (08:24→21:00)
[2019-07-26 08:30] LABS: BG BASE EXCESS -0.6 mmol/L (-2.0-2.0); BG CARBOXYHEMOGLOBIN 0.5 % (0.5-1.5); BG DEOXYHEMOGLOBIN 7.9 % (0.0-5.0); BG FRACTION INSPIRED OXYGEN 28; BG HCO3 ACT 21.6 mmol/L (22.0-26.0); BG METHEMOGLOBIN 0.3 % (0.0-1.5); BG OXYHEMOGLOBIN 91.3 % (94.0-97.0); BG PCO2 29.8 mmHg (35.0-45.0); BG PH 7.478 (7.350-7.450); BG PO2 63.1 mmHg (75.0-100.0); BG SAMPLE SITE RIGHT RADIAL; BG TOTAL HEMOGLOBIN 16.3 g/dL (12.0-18.0); BG VENT MODE NASAL CANNULA
[2019-07-26] MEDS ORDERED: ENOXAPARIN 30MG/0.3ML SYR SUBCUT SCH (09:00)
[2019-07-26] MEDS ORDERED: ENOXAPARIN 40MG/0.4ML SYR SUBCUT ONE (09:00)
[2019-07-26] MEDS: VANCOMYCIN 1 G PREMIX 200 ML IV SCH (09:17)
[2019-07-26 12:19] LABS: PLATELET ESTIMATE SLIGHTLY DECREASED
[2019-07-26] MEDS ORDERED: SIMETHICONE 80MG TABLET CHEW PO NR (13:59)
[2019-07-26] MEDS ORDERED: DIGOXIN 500MCG/2ML AMP IV NR (14:30)
[2019-07-26] MEDS: DOCUSATE SODIUM 100MG CAPSULE PO SCH ×2 (15:35→18:15)
[2019-07-26] MEDS: DILTIAZEM HCL 30MG TABLET PO SCH ×2 (15:38→18:14)
[2019-07-26 16:18] LABS: INR 1.2; PROTHROMBIN TIME 12.4 sec (9.6-11.0)
[2019-07-26] MEDS: DIGOXIN 500MCG/2ML AMP IV SCH (18:15)
[2019-07-27] VITALS (96 sets, daily range): BP systolic 44–164; BP diastolic 17–126
[2019-07-27] MEDS: PIPERACILLIN/TAZOBACTAM 2.25 G in DEXTROSE 5% WATER 50 ML IV SCH ×2 (00:28→08:01)
[2019-07-27] MEDS: DILTIAZEM HCL 30MG TABLET PO SCH ×5 (00:28→18:00)
[2019-07-27] MEDS: IPRATROPIUM/ALBUTEROL 0.5-3(2.5)MG/3ML NEB HHN SCH ×6 (00:34→21:11)
[2019-07-27 05:18] LABS: BG BASE EXCESS -2.1 mmol/L (-2.0-2.0); BG CARBOXYHEMOGLOBIN 0.6 % (0.5-1.5); BG DEOXYHEMOGLOBIN 5.8 % (0.0-5.0); BG FRACTION INSPIRED OXYGEN 28; BG HCO3 ACT 19.4 mmol/L (22.0-26.0); BG METHEMOGLOBIN 0.3 % (0.0-1.5); BG OXYGEN SATURATION 94.1 % (92.0-98.5); BG OXYHEMOGLOBIN 93.3 % (94.0-97.0); BG PCO2 25.9 mmHg (35.0-45.0); BG PH 7.492 (7.350-7.450); BG PO2 69.7 mmHg (75.0-100.0); BG SAMPLE SITE RIGHT RADIAL; BG TOTAL HEMOGLOBIN 15.6 g/dL (12.0-18.0); BG VENT MODE NASAL CANNULA
[2019-07-27] MEDS ORDERED: HALOPERIDOL LACTATE 5MG/ML VIAL IM NR (05:30)
[2019-07-27] MEDS: DIPHENHYDRAMINE 50MG/ML VIAL IV PRN ×2 (05:38→19:49)
[2019-07-27] MEDS: METHYLPREDNISOLONE SOD SUCC 40 MG/ML VIAL IV SCH (05:38)
[2019-07-27 06:51] LABS: HEMATOCRIT. 47.4 % (42.0-52.0); HEMOGLOBIN. 15.9 g/dL (14.0-18.0); MEAN CORPUSCULAR HEMOGLOBIN 31.7 pg (28.0-32.0); MEAN CORPUSCULAR VOLUME 94.3 fL (80.0-94.0); MEAN PLATELET VOLUME 9.4 fl (7.4-10.4); PLATELET 136 x1000/uL (130-400); RED BLOOD CELL COUNT 5.03 mill/uL (4.7-6.1); RED CELL DISTRIBUTION WIDTH 17.1 % (11.6-14.6)
[2019-07-27 07:27] LABS: DIGOXIN 0.8 ng/mL (0.9-2.0)
[2019-07-27] MEDS: BLOOD SUGAR DIAGNOSTIC STRIP TEST SCH ×4 (08:17→21:00)
[2019-07-27] MEDS: BUDESONIDE 0.5MG/2ML NEB HHN SCH ×2 (08:29→21:10)
[2019-07-27] MEDS: FAMOTIDINE 20MG/2ML VIAL IV SCH (08:36)
[2019-07-27] MEDS: VANCOMYCIN 1 G PREMIX 200 ML IV SCH (08:36)
[2019-07-27] MEDS: INSULIN LISPRO 100 UNITS/ML SUBCUT SCH ×4 (08:37→21:00)
[2019-07-27] MEDS: DOCUSATE SODIUM 100MG CAPSULE PO SCH ×2 (08:38→17:00)
[2019-07-27] MEDS: LOSARTAN POTASSIUM 25 MG TABLET PO SCH (09:00)
[2019-07-27] MEDS: CARVEDILOL 6.25 MG TABLET PO SCH ×2 (09:00→21:00)
[2019-07-27] MEDS: APIXABAN 5 MG TABLET PO SCH (09:00)
[2019-07-27] MEDS: FUROSEMIDE 40MG TABLET PO SCH (09:00)
[2019-07-27] MEDS: ASPIRIN 81MG EC TABLET PO SCH (09:00)
[2019-07-27] MEDS: POTASSIUM CHLORIDE 20MEQ TABLET SR PO SCH (09:00)
[2019-07-27] MEDS: DILTIAZEM HCL 125 MG in DEXT 5% WATER 100 ML IV PRN (09:33)
[2019-07-27] MEDS ORDERED: DILTIAZEM HCL 5MG/ML 5ML VIAL IV SCH (11:15)
[2019-07-27 11:56] LABS: PLATELET ESTIMATE NORMAL
[2019-07-27] MEDS ORDERED: SODIUM CHLORIDE 0.45% 1,000 ML IV SCH (13:45)
[2019-07-27] MEDS ORDERED: THROAT LOZENGES-BENZOCAINE/MENTH/CETYLPYRD CL LOZENGES MM PRN (14:45)
[2019-07-27] MEDS ORDERED: LORAZEPAM 2MG/ML CPJ IV PRN (15:15)
[2019-07-27] MEDS: APIXABAN 2.5 MG TABLET PO SCH (17:00)
[2019-07-27] MEDS ORDERED: QUETIAPINE FUMARATE 25MG TABLET PO ONE (17:15)
[2019-07-27] MEDS ORDERED: METHYLPREDNISOLONE SOD SUCC 40 MG/ML VIAL IV SCH (18:00)
[2019-07-27] MEDS ORDERED: HALOPERIDOL LACTATE 5MG/ML VIAL IM ONE (18:15)
[2019-07-27] MEDS: DIGOXIN 500MCG/2ML AMP IV SCH (19:09)
[2019-07-27] MEDS: HALOPERIDOL LACTATE 5MG/ML VIAL IM PRN (19:49)
[2019-07-27 21:36] LABS: VITAMIN B12 SERUM 990 pg/mL (211-911)
[2019-07-28] VITALS (98 sets, daily range): BP systolic 57–214; BP diastolic 14–118
[2019-07-28] MEDS: LORAZEPAM 2MG/ML CPJ IV PRN ×5 (00:27→22:04)
[2019-07-28] MEDS ORDERED: ALBUMIN HUMAN 12.5G/250ML (5%) IV NR (01:45)
[2019-07-28] MEDS: IPRATROPIUM/ALBUTEROL 0.5-3(2.5)MG/3ML NEB HHN SCH ×6 (04:50→20:08)
[2019-07-28 05:41] LABS: HEMATOCRIT. 47.7 % (42.0-52.0); HEMOGLOBIN. 15.8 g/dL (14.0-18.0); MEAN CORPUSCULAR HEMOGLOBIN 31.6 pg (28.0-32.0); MEAN CORPUSCULAR VOLUME 95.5 fL (80.0-94.0); MEAN PLATELET VOLUME 10.1 fl (7.4-10.4); PLATELET 92 x1000/uL (130-400)
[2019-07-28] MEDS: DILTIAZEM HCL 30MG TABLET PO SCH ×4 (06:00→17:42)
[2019-07-28 07:41] LABS: PLATELET ESTIMATE DECREASED
[2019-07-28] MEDS: BLOOD SUGAR DIAGNOSTIC STRIP TEST SCH ×4 (08:03→23:28)
[2019-07-28] MEDS: INSULIN LISPRO 100 UNITS/ML SUBCUT SCH ×4 (08:20→23:28)
[2019-07-28] MEDS: DILTIAZEM HCL 125 MG in DEXT 5% WATER 100 ML IV PRN (08:25)
[2019-07-28] MEDS: HALOPERIDOL LACTATE 5MG/ML VIAL IM PRN ×2 (08:35→17:41)
[2019-07-28] MEDS: ASPIRIN 81MG EC TABLET PO SCH (09:00)
[2019-07-28] MEDS: LOSARTAN POTASSIUM 25 MG TABLET PO SCH (09:00)
[2019-07-28] MEDS: CARVEDILOL 6.25 MG TABLET PO SCH ×2 (09:00→21:16)
[2019-07-28] MEDS: APIXABAN 2.5 MG TABLET PO SCH (09:00)
[2019-07-28] MEDS: DOCUSATE SODIUM 100MG CAPSULE PO SCH ×2 (09:00→17:00)
[2019-07-28] MEDS: POTASSIUM CHLORIDE 20MEQ TABLET SR PO SCH (09:00)
[2019-07-28 09:13] LABS: BG BASE EXCESS 2.8 mmol/L (-2.0-2.0); BG CARBOXYHEMOGLOBIN 0.7 % (0.5-1.5); BG DEOXYHEMOGLOBIN 19.6 % (0.0-5.0); BG FRACTION INSPIRED OXYGEN 28; BG HCO3 ACT 25.9 mmol/L (22.0-26.0); BG METHEMOGLOBIN 0.3 % (0.0-1.5); BG OXYGEN SATURATION 80.2 % (92.0-98.5); BG OXYHEMOGLOBIN 79.4 % (94.0-97.0); BG PCO2 35.3 mmHg (35.0-45.0); BG PH 7.483 (7.350-7.450); BG PO2 43.9 mmHg (75.0-100.0); BG SAMPLE SITE RIGHT BRACHIAL; BG TOTAL HEMOGLOBIN 15.3 g/dL (12.0-18.0); BG VENT MODE NASAL CANNULA
[2019-07-28] MEDS: DILTIAZEM HCL 125 MG in DEXT 5% WATER 100 ML IV SCH (09:57)
[2019-07-28] MEDS: DEXT 5%/0.45% NACL 1000ML 1,000 ML IV SCH (11:35)
[2019-07-28] MEDS: ENOXAPARIN 100MG/ML SYR SUBCUT SCH (11:39)
[2019-07-28] MEDS: FAMOTIDINE 20MG/2ML VIAL IV SCH (11:39)
[2019-07-28 11:41] LABS: BG BASE EXCESS 1.7 mmol/L (-2.0-2.0); BG CARBOXYHEMOGLOBIN 0.9 % (0.5-1.5); BG DEOXYHEMOGLOBIN 7.8 % (0.0-5.0); BG FRACTION INSPIRED OXYGEN 44; BG HCO3 ACT 24.7 mmol/L (22.0-26.0); BG METHEMOGLOBIN 0.2 % (0.0-1.5); BG OXYGEN SATURATION 92.1 % (92.0-98.5); BG OXYHEMOGLOBIN 91.1 % (94.0-97.0); BG PCO2 34.2 mmHg (35.0-45.0); BG PH 7.477 (7.350-7.450); BG PO2 61.5 mmHg (75.0-100.0); BG SAMPLE SITE RIGHT BRACHIAL; BG TOTAL HEMOGLOBIN 15.6 g/dL (12.0-18.0); BG VENT MODE NASAL CANNULA
[2019-07-28] MEDS: BUDESONIDE 0.5MG/2ML NEB HHN SCH ×2 (11:56→20:08)
[2019-07-28] MEDS ORDERED: FUROSEMIDE 40MG/4ML VIAL IVP NR (16:45)
[2019-07-28] MEDS: DIGOXIN 500MCG/2ML AMP IV SCH (17:42)
[2019-07-28] MEDS: RISPERIDONE 0.5MG TABLET PO SCH (21:16)
[2019-07-29] VITALS (33 sets, daily range): BP systolic 76–173; BP diastolic 42–91
[2019-07-29] MEDS: HALOPERIDOL LACTATE 5MG/ML VIAL IM PRN ×2 (04:04→23:26)
[2019-07-29] MEDS: DIPHENHYDRAMINE 50MG/ML VIAL IV PRN ×3 (04:05→23:26)
[2019-07-29] MEDS: LORAZEPAM 2MG/ML CPJ IV PRN ×3 (04:05→12:49)
[2019-07-29] MEDS: IPRATROPIUM/ALBUTEROL 0.5-3(2.5)MG/3ML NEB HHN SCH ×6 (04:10→21:08)
[2019-07-29 05:46] LABS: HEMATOCRIT. 44.9 % (42.0-52.0); HEMOGLOBIN. 15.1 g/dL (14.0-18.0); MEAN CORPUSCULAR HEMOGLOBIN 31.9 pg (28.0-32.0); MEAN CORPUSCULAR VOLUME 94.9 fL (80.0-94.0); MEAN PLATELET VOLUME 9.2 fl (7.4-10.4); PLATELET 82 x1000/uL (130-400); RED BLOOD CELL COUNT 4.73 mill/uL (4.7-6.1); RED CELL DISTRIBUTION WIDTH 16.4 % (11.6-14.6)
[2019-07-29] MEDS: INSULIN LISPRO 100 UNITS/ML SUBCUT SCH ×3 (06:00→17:18)
[2019-07-29] MEDS: DILTIAZEM HCL 30MG TABLET PO SCH ×4 (06:00→17:18)
[2019-07-29] MEDS: BLOOD SUGAR DIAGNOSTIC STRIP TEST SCH ×3 (06:12→17:18)
[2019-07-29] MEDS: DEXT 5%/0.45% NACL 1000ML 1,000 ML IV SCH (06:39)
[2019-07-29 07:12] LABS: BG BASE EXCESS 2.8 mmol/L (-2.0-2.0); BG CARBOXYHEMOGLOBIN 0.8 % (0.5-1.5); BG DEOXYHEMOGLOBIN 9.4 % (0.0-5.0); BG HCO3 ACT 26.3 mmol/L (22.0-26.0); BG METHEMOGLOBIN 0.2 % (0.0-1.5); BG OXYGEN SATURATION 90.5 % (92.0-98.5); BG OXYHEMOGLOBIN 89.6 % (94.0-97.0); BG PCO2 37.1 mmHg (35.0-45.0); BG PH 7.469 (7.350-7.450); BG PO2 58.7 mmHg (75.0-100.0); BG SAMPLE SITE RIGHT BRACHIAL; BG TOTAL HEMOGLOBIN 15.6 g/dL (12.0-18.0); BG VENT MODE NASAL CANNULA
[2019-07-29 07:38] LABS: PLATELET ESTIMATE DECREASED
[2019-07-29] MEDS: FAMOTIDINE 20MG/2ML VIAL IV SCH (08:32)
[2019-07-29] MEDS: DOCUSATE SODIUM 100MG CAPSULE PO SCH ×2 (08:43→17:00)
[2019-07-29] MEDS: LOSARTAN POTASSIUM 25 MG TABLET PO SCH (08:43)
[2019-07-29] MEDS: CARVEDILOL 6.25 MG TABLET PO SCH ×2 (08:43→21:00)
[2019-07-29] MEDS: ASPIRIN 81MG EC TABLET PO SCH (08:43)
[2019-07-29] MEDS: POTASSIUM CHLORIDE 20MEQ TABLET SR PO SCH (08:44)
[2019-07-29] MEDS: RISPERIDONE 0.5MG TABLET PO SCH ×2 (08:44→21:00)
[2019-07-29] MEDS: ENOXAPARIN 100MG/ML SYR SUBCUT SCH (09:00)
[2019-07-29] MEDS: DILTIAZEM HCL 125 MG in DEXT 5% WATER 100 ML IV SCH (09:33)
[2019-07-29 09:50] LABS: HEMATOCRIT. 44.7 % (42.0-52.0); HEMOGLOBIN. 15.1 g/dL (14.0-18.0); MEAN CORPUSCULAR HEMOGLOBIN 31.8 pg (28.0-32.0); MEAN CORPUSCULAR VOLUME 94.5 fL (80.0-94.0); MEAN PLATELET VOLUME 8.7 fl (7.4-10.4); PLATELET 79 x1000/uL (130-400); RED BLOOD CELL COUNT 4.73 mill/uL (4.7-6.1); RED CELL DISTRIBUTION WIDTH 16.5 % (11.6-14.6)
[2019-07-29 09:54] LABS: CHLORIDE 104 mEq/L (98-107)
[2019-07-29] MEDS ORDERED: POTASSIUM CHLORIDE INJ 40 MEQ in DEXT 5% WATER 500 ML IV NR (10:30)
[2019-07-29 12:13] LABS: PLATELET ESTIMATE DECREASED
[2019-07-29 14:03] LABS: INR 1.1; PROTHROMBIN TIME 11.6 sec (9.6-11.0)
[2019-07-29] MEDS ORDERED: DILTIAZEM HCL 5MG/ML 5ML VIAL IV PRN (14:30)
[2019-07-29] MEDS: DIGOXIN 500MCG/2ML AMP IV SCH (17:18)
[2019-07-30] VITALS (27 sets, daily range): BP systolic 88–154; BP diastolic 47–101
[2019-07-30] MEDS: DEXT 5%/0.45% NACL 1000ML 1,000 ML IV SCH (00:44)
[2019-07-30] MEDS: IPRATROPIUM/ALBUTEROL 0.5-3(2.5)MG/3ML NEB HHN SCH ×6 (00:44→21:04)
[2019-07-30] MEDS: BLOOD SUGAR DIAGNOSTIC STRIP TEST SCH ×4 (00:57→18:00)
[2019-07-30] MEDS: LORAZEPAM 2MG/ML CPJ IV PRN (01:50)
[2019-07-30 05:41] LABS: BASOPHILS % 0.1 % (0.0-2.0); EOSINOPHILS % 0.8 % (0.0-5.0); HEMATOCRIT. 42.5 % (42.0-52.0); LYMPHOCYTES % 7.9 % (20.0-50.0); MEAN CORPUSCULAR HEMOGLOBIN 31.6 pg (28.0-32.0); MEAN CORPUSCULAR VOLUME 95.7 fL (80.0-94.0); MEAN PLATELET VOLUME 9.6 fl (7.4-10.4); MONOCYTES % 7.7 % (2.0-8.0); NEUTROPHILS % 83.5 % (40.0-76.0); PLATELET 75 x1000/uL (130-400); RED BLOOD CELL COUNT 4.44 mill/uL (4.7-6.1); RED CELL DISTRIBUTION WIDTH 16.8 % (11.6-14.6)
[2019-07-30 05:42] LABS: CHLORIDE 107 mEq/L (98-107)
[2019-07-30] MEDS: INSULIN LISPRO 100 UNITS/ML SUBCUT SCH ×4 (06:00→18:00)
[2019-07-30] MEDS: DILTIAZEM HCL 30MG TABLET PO SCH ×4 (06:00→18:00)
[2019-07-30] MEDS: RISPERIDONE 0.5MG TABLET PO SCH ×2 (09:00→21:29)
[2019-07-30] MEDS: CARVEDILOL 6.25 MG TABLET PO SCH ×3 (09:00→21:27)
[2019-07-30] MEDS: POTASSIUM CHLORIDE 20MEQ TABLET SR PO SCH (09:00)
[2019-07-30] MEDS: DOCUSATE SODIUM 100MG CAPSULE PO SCH ×2 (09:00→17:00)
[2019-07-30] MEDS: LOSARTAN POTASSIUM 25 MG TABLET PO SCH (09:00)
[2019-07-30] MEDS: FAMOTIDINE 20MG/2ML VIAL IV SCH (09:00)
[2019-07-30] MEDS: ASPIRIN 81MG EC TABLET PO SCH (09:00)
[2019-07-30] MEDS ORDERED: FUROSEMIDE 40MG/4ML VIAL IV NR (13:23)
[2019-07-30] MEDS ORDERED: FUROSEMIDE 40MG/4ML VIAL IVP NR (13:30)
[2019-07-30] MEDS: DIGOXIN 500MCG/2ML AMP IV SCH (18:00)
[2019-07-31] VITALS (24 sets, daily range): BP systolic 70–129; BP diastolic 45–74
[2019-07-31] MEDS: INSULIN LISPRO 100 UNITS/ML SUBCUT SCH ×5 (00:21→17:41)
[2019-07-31] MEDS: BLOOD SUGAR DIAGNOSTIC STRIP TEST SCH ×4 (00:23→17:40)
[2019-07-31] MEDS: DILTIAZEM HCL 30MG TABLET PO SCH ×4 (00:24→17:40)
[2019-07-31] MEDS: IPRATROPIUM/ALBUTEROL 0.5-3(2.5)MG/3ML NEB HHN SCH ×6 (00:53→20:46)
[2019-07-31] MEDS: LOSARTAN POTASSIUM 25 MG TABLET PO SCH (08:59)
[2019-07-31] MEDS: DOCUSATE SODIUM 100MG CAPSULE PO SCH ×2 (08:59→17:00)
[2019-07-31] MEDS: FAMOTIDINE 20MG/2ML VIAL IV SCH (08:59)
[2019-07-31] MEDS: CARVEDILOL 6.25 MG TABLET PO SCH (08:59)
[2019-07-31] MEDS: POTASSIUM CHLORIDE 20MEQ TABLET SR PO SCH (08:59)
[2019-07-31] MEDS: RISPERIDONE 0.5MG TABLET PO SCH ×2 (08:59→21:25)
[2019-07-31] MEDS: ENOXAPARIN 100MG/ML SYR SUBCUT SCH (09:00)
[2019-07-31] MEDS: DIGOXIN 500MCG/2ML AMP IV SCH (17:39)
[2019-07-31 18:38] LABS: BASOPHILS % 0.1 % (0.0-2.0); EOSINOPHILS % 0.9 % (0.0-5.0); HEMATOCRIT. 44.5 % (42.0-52.0); HEMOGLOBIN. 14.8 g/dL (14.0-18.0); LYMPHOCYTES % 8.6 % (20.0-50.0); MEAN CORPUSCULAR HEMOGLOBIN 31.8 pg (28.0-32.0); MEAN CORPUSCULAR VOLUME 95.9 fL (80.0-94.0); MEAN PLATELET VOLUME 10.5 fl (7.4-10.4); MONOCYTES % 6.8 % (2.0-8.0); NEUTROPHILS % 83.6 % (40.0-76.0); PLATELET 84 x1000/uL (130-400); RED BLOOD CELL COUNT 4.64 mill/uL (4.7-6.1); RED CELL DISTRIBUTION WIDTH 16.6 % (11.6-14.6)
[2019-07-31 18:41] LABS: CHLORIDE 106 mEq/L (98-107)
[2019-07-31] MEDS ORDERED: POTASSIUM CHLORIDE 20MEQ TABLET SR PO NR (20:30)
[2019-07-31] MEDS: CARVEDILOL 3.125 MG TABLET PO SCH (21:00)
[2019-08-01] VITALS (9 sets, daily range): BP systolic 91–112; BP diastolic 51–70
[2019-08-01] MEDS: IPRATROPIUM/ALBUTEROL 0.5-3(2.5)MG/3ML NEB HHN SCH ×6 (01:02→20:25)
[2019-08-01] MEDS: INSULIN LISPRO 100 UNITS/ML SUBCUT SCH ×5 (01:21→23:21)
[2019-08-01] MEDS: BLOOD SUGAR DIAGNOSTIC STRIP TEST SCH ×5 (01:21→23:21)
[2019-08-01] MEDS: DILTIAZEM HCL 30MG TABLET PO SCH ×4 (05:21→23:20)
[2019-08-01 07:14] LABS: BASOPHILS % 0.2 % (0.0-2.0); EOSINOPHILS % 1.1 % (0.0-5.0); HEMATOCRIT. 50.6 % (42.0-52.0); HEMOGLOBIN. 16.7 g/dL (14.0-18.0); LYMPHOCYTES % 11.5 % (20.0-50.0); MEAN CORPUSCULAR HEMOGLOBIN 31.8 pg (28.0-32.0); MEAN CORPUSCULAR VOLUME 96.2 fL (80.0-94.0); MEAN PLATELET VOLUME 10.4 fl (7.4-10.4); MONOCYTES % 9.3 % (2.0-8.0); NEUTROPHILS % 77.9 % (40.0-76.0); PLATELET 91 x1000/uL (130-400); RED BLOOD CELL COUNT 5.26 mill/uL (4.7-6.1)
[2019-08-01] MEDS: LOSARTAN POTASSIUM 25 MG TABLET PO SCH (08:34)
[2019-08-01] MEDS: FAMOTIDINE 20MG/2ML VIAL IV SCH (08:39)
[2019-08-01] MEDS: POTASSIUM CHLORIDE 20MEQ TABLET SR PO SCH (08:40)
[2019-08-01] MEDS: FUROSEMIDE 40MG/4ML VIAL IVP SCH (08:40)
[2019-08-01] MEDS: DOCUSATE SODIUM 100MG CAPSULE PO SCH ×2 (08:40→18:12)
[2019-08-01] MEDS: RISPERIDONE 0.5MG TABLET PO SCH ×2 (08:40→21:05)
[2019-08-01] MEDS: CARVEDILOL 3.125 MG TABLET PO SCH ×2 (09:00→21:04)
[2019-08-01] MEDS: ENOXAPARIN 100MG/ML SYR SUBCUT SCH (11:58)
[2019-08-01 12:41] LABS: HEMATOCRIT 46.5 % (42.0-52.0); HEMOGLOBIN 15.4 g/dL (14.0-18.0); MEAN CORPUSCULAR HEMOGLOBIN 32.1 pg (28.0-32.0); MEAN CORPUSCULAR VOLUME 96.6 fL (80.0-94.0); PLATELET 84 x1000/uL (130-400); RED BLOOD CELL COUNT 4.82 mill/uL (4.7-6.1); RED CELL DISTRIBUTION WIDTH 17.1 % (11.6-14.6)
[2019-08-01 12:47] LABS: CHLORIDE 107 mEq/L (98-107)
[2019-08-01 16:16] LABS: BG BASE EXCESS 4.8 mmol/L (-2.0-2.0); BG CARBOXYHEMOGLOBIN 1.1 % (0.5-1.5); BG FRACTION INSPIRED OXYGEN 21; BG HCO3 ACT 28.2 mmol/L (22.0-26.0); BG METHEMOGLOBIN 0.2 % (0.0-1.5); BG OXYGEN SATURATION 82.8 % (92.0-98.5); BG OXYHEMOGLOBIN 81.7 % (94.0-97.0); BG PCO2 37.6 mmHg (35.0-45.0); BG PH 7.493 (7.350-7.450); BG PO2 45.6 mmHg (75.0-100.0); BG SAMPLE SITE RIGHT BRACHIAL; BG TOTAL HEMOGLOBIN 15.6 g/dL (12.0-18.0); BG VENT MODE ROOM AIR
[2019-08-01] MEDS: DIGOXIN 500MCG/2ML AMP IV SCH (18:04)
[2019-08-01] MEDS: APIXABAN 5 MG TABLET PO SCH (18:10)
[2019-08-02] VITALS (9 sets, daily range): BP systolic 88–162; BP diastolic 48–64
[2019-08-02] MEDS: IPRATROPIUM/ALBUTEROL 0.5-3(2.5)MG/3ML NEB HHN SCH ×5 (00:04→20:09)
[2019-08-02] MEDS: BLOOD SUGAR DIAGNOSTIC STRIP TEST SCH ×4 (05:03→23:06)
[2019-08-02] MEDS: INSULIN LISPRO 100 UNITS/ML SUBCUT SCH ×4 (05:04→23:07)
[2019-08-02 07:58] LABS: HEMATOCRIT 43.4 % (42.0-52.0); HEMOGLOBIN 14.4 g/dL (14.0-18.0); MEAN CORPUSCULAR HEMOGLOBIN 31.7 pg (28.0-32.0); MEAN CORPUSCULAR VOLUME 95.4 fL (80.0-94.0); PLATELET 95 x1000/uL (130-400); RED BLOOD CELL COUNT 4.55 mill/uL (4.7-6.1); RED CELL DISTRIBUTION WIDTH 16.9 % (11.6-14.6)
[2019-08-02] MEDS: FUROSEMIDE 40MG/4ML VIAL IVP SCH (08:14)
[2019-08-02] MEDS: CARVEDILOL 3.125 MG TABLET PO SCH (08:14)
[2019-08-02] MEDS: FAMOTIDINE 20MG/2ML VIAL IV SCH (08:14)
[2019-08-02] MEDS: RISPERIDONE 0.5MG TABLET PO SCH ×2 (08:14→21:21)
[2019-08-02] MEDS: APIXABAN 5 MG TABLET PO SCH ×2 (08:14→16:40)
[2019-08-02] MEDS: DOCUSATE SODIUM 100MG CAPSULE PO SCH ×2 (08:14→16:40)
[2019-08-02] MEDS: POTASSIUM CHLORIDE 20MEQ TABLET SR PO SCH (08:15)
[2019-08-02] MEDS: LOSARTAN POTASSIUM 25 MG TABLET PO SCH (08:15)
[2019-08-02] MEDS ORDERED: MIDODRINE HCL 5MG TABLET PO SCH (10:45)
[2019-08-02] MEDS: DILTIAZEM HCL 30MG TABLET PO SCH ×2 (14:07→23:06)
[2019-08-02] MEDS: DIGOXIN 500MCG/2ML AMP IV SCH (17:58)
[2019-08-03] VITALS (7 sets, daily range): BP systolic 91–124; BP diastolic 48–70
[2019-08-03] MEDS: IPRATROPIUM/ALBUTEROL 0.5-3(2.5)MG/3ML NEB HHN SCH ×6 (00:28→20:21)
[2019-08-03] MEDS: INSULIN LISPRO 100 UNITS/ML SUBCUT SCH ×3 (05:19→17:03)
[2019-08-03] MEDS: BLOOD SUGAR DIAGNOSTIC STRIP TEST SCH ×3 (05:19→17:01)
[2019-08-03 07:05] LABS: HEMATOCRIT 41.7 % (42.0-52.0); HEMOGLOBIN 13.9 g/dL (14.0-18.0); MEAN CORPUSCULAR HEMOGLOBIN 31.8 pg (28.0-32.0); MEAN CORPUSCULAR VOLUME 95.7 fL (80.0-94.0); PLATELET 91 x1000/uL (130-400); RED BLOOD CELL COUNT 4.36 mill/uL (4.7-6.1); RED CELL DISTRIBUTION WIDTH 17.1 % (11.6-14.6)
[2019-08-03 07:11] LABS: CHLORIDE 104 mEq/L (98-107)
[2019-08-03] MEDS: POTASSIUM CHLORIDE 20MEQ TABLET SR PO SCH (08:33)
[2019-08-03] MEDS: LOSARTAN POTASSIUM 25 MG TABLET PO SCH (08:33)
[2019-08-03] MEDS: RISPERIDONE 0.5MG TABLET PO SCH ×2 (08:34→21:49)
[2019-08-03] MEDS: DOCUSATE SODIUM 100MG CAPSULE PO SCH ×2 (08:34→17:00)
[2019-08-03] MEDS: FUROSEMIDE 40MG/4ML VIAL IVP SCH (08:34)
[2019-08-03] MEDS: FAMOTIDINE 20MG/2ML VIAL IV SCH (08:34)
[2019-08-03] MEDS: APIXABAN 5 MG TABLET PO SCH ×2 (08:34→17:00)
[2019-08-03] MEDS: DILTIAZEM HCL 30MG TABLET PO SCH (12:25)
[2019-08-04] VITALS: BP 108/62
[2019-08-04] MEDS: IPRATROPIUM/ALBUTEROL 0.5-3(2.5)MG/3ML NEB HHN SCH ×6 (00:26→20:56)
[2019-08-04] MEDS: BLOOD SUGAR DIAGNOSTIC STRIP TEST SCH ×4 (00:49→18:20)
[2019-08-04] MEDS: DILTIAZEM HCL 30MG TABLET PO SCH ×2 (00:50→13:23)
[2019-08-04 04:00] VITALS: BP 109/63
[2019-08-04] MEDS: INSULIN LISPRO 100 UNITS/ML SUBCUT SCH ×4 (05:54→18:00)
[2019-08-04 08:00] VITALS: BP 108/61
[2019-08-04 08:10] LABS: BASOPHILS % 0.4 % (0.0-2.0); EOSINOPHILS % 0.9 % (0.0-5.0); HEMATOCRIT. 38.2 % (42.0-52.0); HEMOGLOBIN. 12.8 g/dL (14.0-18.0); LYMPHOCYTES % 11.5 % (20.0-50.0); MEAN CORPUSCULAR VOLUME 95.5 fL (80.0-94.0); MEAN PLATELET VOLUME 10.1 fl (7.4-10.4); MONOCYTES % 12.9 % (2.0-8.0); NEUTROPHILS % 74.3 % (40.0-76.0); PLATELET 90 x1000/uL (130-400); RED CELL DISTRIBUTION WIDTH 16.6 % (11.6-14.6)
[2019-08-04 08:47] LABS: CHLORIDE 106 mEq/L (98-107)
[2019-08-04] MEDS: LOSARTAN POTASSIUM 25 MG TABLET PO SCH (09:00)
[2019-08-04 09:12] LABS: DIGOXIN 1.2 ng/mL (0.9-2.0)
[2019-08-04] MEDS: RISPERIDONE 0.5MG TABLET PO SCH ×2 (09:41→20:58)
[2019-08-04] MEDS: FAMOTIDINE 20MG/2ML VIAL IV SCH (09:42)
[2019-08-04] MEDS: APIXABAN 5 MG TABLET PO SCH ×2 (09:42→18:20)
[2019-08-04] MEDS: FUROSEMIDE 40MG/4ML VIAL IVP SCH (09:42)
[2019-08-04] MEDS: DOCUSATE SODIUM 100MG CAPSULE PO SCH ×2 (09:42→18:20)
[2019-08-04] MEDS: POTASSIUM CHLORIDE 20MEQ TABLET SR PO SCH (09:42)
[2019-08-04 12:00] VITALS: BP 128/70
[2019-08-04] MEDS: DIGOXIN 125MCG TABLET PO SCH (18:20)
[2019-08-04 20:00] VITALS: BP 96/51
[2019-08-05] VITALS: BP 90/44
[2019-08-05] MEDS: IPRATROPIUM/ALBUTEROL 0.5-3(2.5)MG/3ML NEB HHN SCH ×6 (00:37→21:51)
[2019-08-05] MEDS: BLOOD SUGAR DIAGNOSTIC STRIP TEST SCH ×4 (00:45→17:02)
[2019-08-05 04:00] VITALS: BP 117/72
[2019-08-05] MEDS: INSULIN LISPRO 100 UNITS/ML SUBCUT SCH ×4 (06:00→17:02)
[2019-08-05 08:00] VITALS: BP 100/49
[2019-08-05] MEDS: LOSARTAN POTASSIUM 25 MG TABLET PO SCH (08:00)
[2019-08-05] MEDS: RISPERIDONE 0.5MG TABLET PO SCH ×2 (08:54→20:56)
[2019-08-05] MEDS: DOCUSATE SODIUM 100MG CAPSULE PO SCH ×2 (08:54→16:36)
[2019-08-05] MEDS: POTASSIUM CHLORIDE 20MEQ TABLET SR PO SCH (08:54)
[2019-08-05] MEDS: FAMOTIDINE 20MG/2ML VIAL IV SCH (08:55)
[2019-08-05] MEDS: APIXABAN 5 MG TABLET PO SCH ×2 (08:55→16:36)
[2019-08-05] MEDS: FUROSEMIDE 40MG/4ML VIAL IVP SCH (08:56)
[2019-08-05 12:00] VITALS: BP 92/63
[2019-08-05] MEDS: DILTIAZEM HCL 30MG TABLET PO SCH ×2 (12:00)
[2019-08-05 16:00] VITALS: BP 105/58
[2019-08-05 20:00] VITALS: BP 106/62
[2019-08-06] VITALS: BP 109/58
[2019-08-06] MEDS: IPRATROPIUM/ALBUTEROL 0.5-3(2.5)MG/3ML NEB HHN SCH ×6 (00:35→22:12)
[2019-08-06] MEDS: DILTIAZEM HCL 30MG TABLET PO SCH ×2 (02:24→13:03)
[2019-08-06 04:00] VITALS: BP 98/64
[2019-08-06] MEDS: INSULIN LISPRO 100 UNITS/ML SUBCUT SCH ×4 (06:00→17:31)
[2019-08-06] MEDS: BLOOD SUGAR DIAGNOSTIC STRIP TEST SCH ×4 (06:37→17:32)
[2019-08-06 08:00] VITALS: BP 107/62
[2019-08-06] MEDS: DOCUSATE SODIUM 100MG CAPSULE PO SCH ×2 (08:46→17:23)
[2019-08-06] MEDS: RISPERIDONE 0.5MG TABLET PO SCH ×2 (08:46→21:48)
[2019-08-06] MEDS: POTASSIUM CHLORIDE 20MEQ TABLET SR PO SCH (08:47)
[2019-08-06] MEDS: APIXABAN 5 MG TABLET PO SCH ×2 (08:47→17:23)
[2019-08-06] MEDS: FUROSEMIDE 40MG/4ML VIAL IVP SCH (08:48)
[2019-08-06] MEDS: FAMOTIDINE 20MG/2ML VIAL IV SCH (08:48)
[2019-08-06] MEDS: LOSARTAN POTASSIUM 25 MG TABLET PO SCH (08:48)
[2019-08-06 12:00] VITALS: BP 112/55
[2019-08-06 16:00] VITALS: BP 107/60
[2019-08-06] MEDS: DIGOXIN 125MCG TABLET PO SCH (17:30)
[2019-08-06 20:00] VITALS: BP 97/59
[2019-08-07] VITALS: BP 133/64
[2019-08-07] MEDS: IPRATROPIUM/ALBUTEROL 0.5-3(2.5)MG/3ML NEB HHN SCH ×6 (01:17→20:52)
[2019-08-07] MEDS: DILTIAZEM HCL 30MG TABLET PO SCH ×2 (01:19→12:55)
[2019-08-07 04:00] VITALS: BP 103/60
[2019-08-07] MEDS: BLOOD SUGAR DIAGNOSTIC STRIP TEST SCH ×4 (05:46→18:06)
[2019-08-07] MEDS: INSULIN LISPRO 100 UNITS/ML SUBCUT SCH ×4 (06:00→18:00)
[2019-08-07 08:00] VITALS: BP 117/66
[2019-08-07] MEDS: FUROSEMIDE 40MG/4ML VIAL IVP SCH (09:34)
[2019-08-07] MEDS: POTASSIUM CHLORIDE 20MEQ TABLET SR PO SCH (09:34)
[2019-08-07] MEDS: LOSARTAN POTASSIUM 25 MG TABLET PO SCH (09:34)
[2019-08-07] MEDS: FAMOTIDINE 20MG/2ML VIAL IV SCH (09:34)
[2019-08-07] MEDS: DOCUSATE SODIUM 100MG CAPSULE PO SCH ×2 (09:34→16:40)
[2019-08-07] MEDS: APIXABAN 5 MG TABLET PO SCH ×2 (10:06→18:06)
[2019-08-07] MEDS: RISPERIDONE 0.5MG TABLET PO SCH ×2 (10:06→22:00)
[2019-08-07] MEDS ORDERED: HYDROCODONE/ACETAMINOPHEN 5/325MG TABLET PO PRN (15:30)
[2019-08-07 16:33] VITALS: BP 101/50
[2019-08-07 20:00] VITALS: BP 89/55
[2019-08-07] MEDS ORDERED: SODIUM CHLORIDE 0.9% 250 ML IV ONE (22:15)
[2019-08-08] VITALS: BP 95/46
[2019-08-08] MEDS: IPRATROPIUM/ALBUTEROL 0.5-3(2.5)MG/3ML NEB HHN SCH ×4 (01:15→12:12)
[2019-08-08 04:00] VITALS: BP 103/51
[2019-08-08] MEDS: INSULIN LISPRO 100 UNITS/ML SUBCUT SCH ×3 (06:00→11:31)
[2019-08-08] MEDS: BLOOD SUGAR DIAGNOSTIC STRIP TEST SCH ×3 (06:17→11:31)
[2019-08-08 07:11] LABS: CHLORIDE 104 mEq/L (98-107)
[2019-08-08 07:20] LABS: HEMOGLOBIN 13.1 g/dL (14.0-18.0); MEAN CORPUSCULAR HEMOGLOBIN 31.9 pg (28.0-32.0); PLATELET 128 x1000/uL (130-400); RED CELL DISTRIBUTION WIDTH 16.4 % (11.6-14.6)
[2019-08-08 08:00] VITALS: BP 104/50
[2019-08-08] MEDS: LOSARTAN POTASSIUM 25 MG TABLET PO SCH (09:00)
[2019-08-08] MEDS: FUROSEMIDE 40MG/4ML VIAL IVP SCH (09:02)
[2019-08-08] MEDS: POTASSIUM CHLORIDE 20MEQ TABLET SR PO SCH (09:02)
[2019-08-08] MEDS: DOCUSATE SODIUM 100MG CAPSULE PO SCH (09:02)
[2019-08-08] MEDS: FAMOTIDINE 20MG/2ML VIAL IV SCH (09:02)
[2019-08-08] MEDS: RISPERIDONE 0.5MG TABLET PO SCH (09:02)
[2019-08-08] MEDS: APIXABAN 5 MG TABLET PO SCH (09:02)
[2019-08-08] MEDS: DILTIAZEM HCL 30MG TABLET PO SCH ×2 (11:38)
[2019-08-08 12:00] VITALS: BP 104/62
== END 2019-08-08 13:42 | DRG 871 ==
LOC: ER 13:34 → CVICU 16:58 → EDBEDREQTM 17:03 → EDBEDREQSVC 17:03 → EDBEDREQ 17:03 → EDBEDREQSVC 18:11 → EDBEDREQ 18:11 → EDBEDREQTM 18:11 → ENRESERV 21:07 → 3WST 07-31 23:03 → 6WST 08-01 01:47 → 6EST 08-04 18:05
PROVIDERS: ADMIT Internal Medicine; ATTEND Internal Medicine
PROC: 5A09357 Assistance with Respiratory Ventilation, Less than 24 Consecutive Hours, Continuous Positive Airway Pressure (ICD-10-PCS; principal; 2019-07-25)
DX: A41.9 Sepsis, unspecified organism (principal); I50.33 Acute on chronic diastolic (congestive) heart failure; E43 Unspecified severe protein-calorie malnutrition; J96.90 Respiratory failure, unspecified, unspecified whether with hypoxia or hypercapnia; G93.41 Metabolic encephalopathy; S42.202A Unspecified fracture of upper end of left humerus, initial encounter for closed fracture; I13.0 Hypertensive heart and chronic kidney disease with heart failure and stage 1 through stage 4 chronic kidney disease, or unspecified chronic kidney disease; N17.9 Acute kidney failure, unspecified; I48.1 Persistent atrial fibrillation; N18.9 Chronic kidney disease, unspecified; Z66 Do not resuscitate; T38.0X5A Adverse effect of glucocorticoids and synthetic analogues, initial encounter; S81.811A Laceration without foreign body, right lower leg, initial encounter; K59.00 Constipation, unspecified; E11.22 Type 2 diabetes mellitus with diabetic chronic kidney disease; E87.6 Hypokalemia; K80.20 Calculus of gallbladder without cholecystitis without obstruction; J43.9 Emphysema, unspecified; I27.20 Pulmonary hypertension, unspecified; E66.01 Morbid (severe) obesity due to excess calories; F17.200 Nicotine dependence, unspecified, uncomplicated; Z96.659 Presence of unspecified artificial knee joint; R31.9 Hematuria, unspecified; I49.3 Ventricular premature depolarization; I48.0 Paroxysmal atrial fibrillation; K76.0 Fatty (change of) liver, not elsewhere classified; K82.8 Other specified diseases of gallbladder; D69.6 Thrombocytopenia, unspecified; M13.0 Polyarthritis, unspecified; I71.2 Thoracic aortic aneurysm, without rupture; X58.XXXA Exposure to other specified factors, initial encounter; M71.22 Synovial cyst of popliteal space [Baker], left knee; I35.1 Nonrheumatic aortic (valve) insufficiency; N28.1 Cyst of kidney, acquired; N40.0 Benign prostatic hyperplasia without lower urinary tract symptoms; Z99.81 Dependence on supplemental oxygen; Z88.2 Allergy status to sulfonamides; Z79.52 Long term (current) use of systemic steroids; Z79.01 Long term (current) use of anticoagulants; Z79.899 Other long term (current) drug therapy; Y92.89 Other specified places as the place of occurrence of the external cause; Y93.89 Activity, other specified; Y99.8 Other external cause status; Z68.35 Body mass index [BMI] 35.0-35.9, adult; Z79.84 Long term (current) use of oral hypoglycemic drugs; Z78.1 Physical restraint status
CPT/HCPCS: 36415; 36600; 70551; 71045; 73200; 74018; 74176; 76700; 80048; 80076; 80162; 80202; 80305; 81003; 82140; 82150; 82375; 82378; 82550; 82553; 82607; 82805; 82962; 83605; 83735; 83880; 84145; 84439; 84443; 84484; 85027; 86022; 86592; 92610; 93005; 93970; 94640; 94660; 97162; 97530; 99291; A6261; C1893; J1160; J1200; J1630; J1650; J1815; J1940; J2060; J2543; J2920; J2930; J3370; J3475; J3480; J3490; J7040; J7060; J7611; J7620; J7626; P9041; A4315

== ENCOUNTER 2019-11-29 15:23 | Inpatient (IN) | payer BC ==
[~2019-11-29] VITALS: Ht 154.5 cm; Wt 78.5 kg
[~2019-11-29 15:23] MED LIST changes: +APIX5TAB MT; -ASPI-1393 PO; +ASPI-1497 PO; +CARSR90 MT; +FURO80TA3 MT; -MONT10TA24 PO; +MONT10TA26 PO; +POTA25TA8 PO
[2019-11-29] MEDS ORDERED: SODIUM CHLORIDE 0.9% 1,000 ML IV ONE (16:00)
[2019-11-29 16:32] LABS: BASOPHILS % 0.9 % (0.0-2.0); EOSINOPHILS % 1.6 % (0.0-5.0); HEMATOCRIT. 37.8 % (42.0-52.0); HEMOGLOBIN. 12.2 g/dL (14.0-18.0); LYMPHOCYTES % 17.9 % (20.0-50.0); MEAN CORPUSCULAR HEMOGLOBIN 28.7 pg (28.0-32.0); MEAN CORPUSCULAR VOLUME 88.6 fL (80.0-94.0); MEAN PLATELET VOLUME 8.9 fl (7.4-10.4); MONOCYTES % 9.1 % (2.0-8.0); NEUTROPHILS % 70.5 % (40.0-76.0); PLATELET 289 x1000/uL (130-400); RED BLOOD CELL COUNT 4.26 mill/uL (4.7-6.1); RED CELL DISTRIBUTION WIDTH 16.7 % (11.6-14.6)
[2019-11-29 16:37] LABS: CHLORIDE 96 mEq/L (98-107)
[2019-11-29] MEDS ORDERED: ASPIRIN 81MG TABLET PO ONE (18:00)
[2019-11-29] MEDS ORDERED: DOPAMINE 400MG/250ML PREMIX 250 ML IV NR (20:15)
[2019-11-29] MEDS ORDERED: ONDANSETRON HCL 4MG/2ML INJ IV ONE (21:15)
[2019-11-30] VITALS (37 sets, daily range): BP systolic 77–145; BP diastolic 42–87
[2019-11-30] MEDS ORDERED: NOREPINEPHRINE 4MG/250ML PMX 250 ML IV ONE (07:04)
[2019-11-30] MEDS ORDERED: DOPAMINE 400MG/250ML PREMIX 250 ML IV SCH (11:00)
[2019-11-30] MEDS ORDERED: HYDROCODONE/ACETAMINOPHEN 5/325MG TABLET PO PRN ×2 (11:15→13:00)
[2019-11-30] MEDS ORDERED: LORAZEPAM 0.5MG TABLET PO PRN (13:00)
[2019-11-30] MEDS ORDERED: NA PHOS,M-B/NA PHOS,DI-BA ENEMA 118ML PR PRN (13:00)
[2019-11-30] MEDS ORDERED: ACETAMINOPHEN 650MG SUPP PR PRN (13:00)
[2019-11-30] MEDS ORDERED: ONDANSETRON HCL 4MG/2ML INJ IV PRN (13:00)
[2019-11-30] MEDS ORDERED: DIPHENHYDRAMINE 50MG/ML VIAL IV PRN (13:00)
[2019-11-30] MEDS ORDERED: DOPAMINE 800MG PREMIX (DOUBLE) 250 ML IV PRN (13:00)
[2019-11-30] MEDS ORDERED: GUAIFENESIN 200MG/10ML SUGAR FREE UDC PO PRN (13:00)
[2019-11-30] MEDS ORDERED: DOCUSATE SODIUM 100MG CAPSULE PO PRN (13:00)
[2019-11-30] MEDS ORDERED: ACETAMINOPHEN 325MG TABLET PO PRN (13:00)
[2019-11-30] MEDS ORDERED: IPRATROPIUM/ALBUTEROL 0.5-3(2.5)MG/3ML NEB NEB PRN (13:00)
[2019-11-30] MEDS ORDERED: MAGNESIUM/ALUMINUM HYDROXIDE/SIMETHICONE 30ML UDC PO PRN (13:00)
[2019-11-30] MEDS ORDERED: DEXTROSE 50% WATER 50ML SYRINGE IV PRN (13:00)
[2019-11-30 13:37] LABS: BG BASE EXCESS -0.7 mmol/L (-2.0-2.0); BG CARBOXYHEMOGLOBIN 0.7 % (0.5-1.5); BG DEOXYHEMOGLOBIN 11.6 % (0.0-5.0); BG FRACTION INSPIRED OXYGEN 36; BG HCO3 ACT 23.6 mmol/L (22.0-26.0); BG METHEMOGLOBIN 0.1 % (0.0-1.5); BG OXYGEN SATURATION 88.3 % (92.0-98.5); BG OXYHEMOGLOBIN 87.6 % (94.0-97.0); BG PCO2 37.9 mmHg (35.0-45.0); BG PH 7.412 (7.350-7.450); BG PO2 58.2 mmHg (75.0-100.0); BG SAMPLE SITE RIGHT BRACHIAL; BG TOTAL HEMOGLOBIN 12.7 g/dL (12.0-18.0); BG VENT MODE NASAL CANNULA
[2019-11-30 13:40] LABS: HEMATOCRIT 38.6 % (42.0-52.0); HEMOGLOBIN 12.7 g/dL (14.0-18.0); MEAN CORPUSCULAR HEMOGLOBIN 28.9 pg (28.0-32.0); MEAN CORPUSCULAR VOLUME 88.2 fL (80.0-94.0); PLATELET 283 x1000/uL (130-400); RED BLOOD CELL COUNT 4.38 mill/uL (4.7-6.1); RED CELL DISTRIBUTION WIDTH 16.9 % (11.6-14.6)
[2019-11-30 13:45] LABS: CHLORIDE 98 mEq/L (98-107)
[2019-11-30 13:54] LABS: CREATINE KINASE 46 IU/L (39-308)
[2019-11-30 13:55] LABS: CREATINE KINASE MB FRACTION 1.6 ng/mL (0.5-3.6)
[2019-11-30] MEDS: DOPAMINE 800MG PREMIX (DOUBLE) 250 ML IV PRN (13:57)
[2019-11-30] MEDS ORDERED: LEVOFLOXACIN 500MG TABLET PO NR (15:00)
[2019-11-30] MEDS: METHYLPREDNISOLONE SOD SUCC 40 MG/ML VIAL IV SCH (15:53)
[2019-11-30] MEDS: ASPIRIN 81MG EC TABLET PO SCH (15:53)
[2019-11-30] MEDS: ENOXAPARIN 40MG/0.4ML SYR SUBCUT SCH (15:54)
[2019-11-30 17:10] LABS: CLARITY URINE CLOUDY (CLEAR); COLOR URINE YELLOW (YELLOW); KETONES URINE NEGATIVE (NEGATIVE); LEUKOCYTE ESTERASE URINE 3+ (NEGATIVE); NITRITE URINE NEGATIVE (NEGATIVE); OCCULT BLOOD URINE 1+ (NEGATIVE); PH URINE 5.5 (4.5-8.0); PROTEIN URINE TRACE (NEGATIVE); SPECIFIC GRAVITY URINE 1.012 (1.005-1.030)
[2019-11-30] MEDS: BLOOD SUGAR DIAGNOSTIC STRIP TEST SCH ×2 (18:31→21:34)
[2019-11-30] MEDS: INSULIN LISPRO 100 UNITS/ML SUBCUT SCH ×2 (18:32→21:33)
[2019-12-01] VITALS (97 sets, daily range): BP systolic 46–126; BP diastolic 22–86
[2019-12-01] MEDS: IPRATROPIUM/ALBUTEROL 0.5-3(2.5)MG/3ML NEB NEB SCH ×5 (02:13→21:14)
[2019-12-01] MEDS: METHYLPREDNISOLONE SOD SUCC 40 MG/ML VIAL IV SCH ×2 (03:10→15:00)
[2019-12-01 04:59] LABS: BASOPHILS % 0.1 % (0.0-2.0); CHLORIDE 97 mEq/L (98-107); HEMATOCRIT. 38.5 % (42.0-52.0); HEMOGLOBIN. 12.4 g/dL (14.0-18.0); LYMPHOCYTES % 12.3 % (20.0-50.0); MEAN CORPUSCULAR HEMOGLOBIN 28.1 pg (28.0-32.0); MEAN PLATELET VOLUME 8.8 fl (7.4-10.4); MONOCYTES % 5.9 % (2.0-8.0); NEUTROPHILS % 81.7 % (40.0-76.0); PLATELET 256 x1000/uL (130-400); RED BLOOD CELL COUNT 4.43 mill/uL (4.7-6.1); RED CELL DISTRIBUTION WIDTH 16.8 % (11.6-14.6)
[2019-12-01 05:10] LABS: HDL CHOLESTEROL 60 mg/dL (40-59); LDL CHOLESTEROL 94 mg/dL (5-100)
[2019-12-01] MEDS: DOPAMINE 800MG PREMIX (DOUBLE) 250 ML IV PRN (06:34)
[2019-12-01] MEDS: ASPIRIN 81MG EC TABLET PO SCH (08:40)
[2019-12-01] MEDS: INSULIN LISPRO 100 UNITS/ML SUBCUT SCH ×4 (08:40→21:00)
[2019-12-01] MEDS: BLOOD SUGAR DIAGNOSTIC STRIP TEST SCH ×4 (08:41→21:00)
[2019-12-01] MEDS: ENOXAPARIN 40MG/0.4ML SYR SUBCUT SCH (08:41)
[2019-12-01] MEDS ORDERED: DOPAMINE 800MG PREMIX (DOUBLE) 250 ML IV SCH (09:30)
[2019-12-01] MEDS ORDERED: SODIUM CHLORIDE 0.9% 500 ML IV ONE (09:30)
[2019-12-01] MEDS: LEVOFLOXACIN 250MG TABLET PO SCH (11:41)
[2019-12-01] MEDS: FLUCONAZOLE 100MG TABLET PO SCH (15:01)
[2019-12-02] VITALS (69 sets, daily range): BP systolic 76–131; BP diastolic 29–73
[2019-12-02] MEDS: IPRATROPIUM/ALBUTEROL 0.5-3(2.5)MG/3ML NEB NEB SCH ×4 (00:30→19:49)
[2019-12-02] MEDS: METHYLPREDNISOLONE SOD SUCC 40 MG/ML VIAL IV SCH ×2 (03:01→16:21)
[2019-12-02 06:34] LABS: HEMATOCRIT. 37.3 % (42.0-52.0); LYMPHOCYTES % 9.1 % (20.0-50.0); MEAN CORPUSCULAR HEMOGLOBIN 28.1 pg (28.0-32.0); MEAN CORPUSCULAR VOLUME 87.5 fL (80.0-94.0); MEAN PLATELET VOLUME 8.8 fl (7.4-10.4); MONOCYTES % 6.8 % (2.0-8.0); NEUTROPHILS % 84.1 % (40.0-76.0); PLATELET 239 x1000/uL (130-400); RED BLOOD CELL COUNT 4.26 mill/uL (4.7-6.1); RED CELL DISTRIBUTION WIDTH 16.7 % (11.6-14.6)
[2019-12-02 06:44] LABS: CHLORIDE 98 mEq/L (98-107)
[2019-12-02] MEDS: ASPIRIN 81MG EC TABLET PO SCH (08:09)
[2019-12-02] MEDS: APIXABAN 5 MG TABLET PO SCH ×2 (08:09→16:22)
[2019-12-02] MEDS: FLUCONAZOLE 100MG TABLET PO SCH (08:09)
[2019-12-02] MEDS: INSULIN LISPRO 100 UNITS/ML SUBCUT SCH ×4 (08:09→22:14)
[2019-12-02] MEDS: BLOOD SUGAR DIAGNOSTIC STRIP TEST SCH ×4 (08:10→21:00)
[2019-12-02] MEDS: LEVOFLOXACIN 250MG TABLET PO SCH (10:53)
[2019-12-02] MEDS: ACETAMINOPHEN 325MG TABLET PO PRN (22:10)
[2019-12-03] VITALS (27 sets, daily range): BP systolic 104–133; BP diastolic 59–98
[2019-12-03] MEDS: IPRATROPIUM/ALBUTEROL 0.5-3(2.5)MG/3ML NEB NEB SCH ×4 (01:56→19:43)
[2019-12-03] MEDS: METHYLPREDNISOLONE SOD SUCC 40 MG/ML VIAL IV SCH ×2 (03:43→14:58)
[2019-12-03] MEDS: BLOOD SUGAR DIAGNOSTIC STRIP TEST SCH ×4 (08:18→21:28)
[2019-12-03] MEDS: FLUCONAZOLE 100MG TABLET PO SCH (08:20)
[2019-12-03] MEDS: ASPIRIN 81MG EC TABLET PO SCH (08:20)
[2019-12-03] MEDS: APIXABAN 5 MG TABLET PO SCH ×2 (08:20→17:37)
[2019-12-03] MEDS: INSULIN LISPRO 100 UNITS/ML SUBCUT SCH ×4 (08:20→21:42)
[2019-12-03 08:24] LABS: CHLORIDE 99 mEq/L (98-107)
[2019-12-03] MEDS: LEVOFLOXACIN 250MG TABLET PO SCH (10:53)
[2019-12-03] MEDS: ACETAMINOPHEN 325MG TABLET PO PRN (18:35)
[2019-12-04] VITALS (24 sets, daily range): BP systolic 92–150; BP diastolic 48–90
[2019-12-04] MEDS: IPRATROPIUM/ALBUTEROL 0.5-3(2.5)MG/3ML NEB NEB SCH ×4 (02:34→21:16)
[2019-12-04] MEDS: METHYLPREDNISOLONE SOD SUCC 40 MG/ML VIAL IV SCH ×2 (03:36→14:06)
[2019-12-04 05:56] LABS: HEMATOCRIT. 33.1 % (42.0-52.0); HEMOGLOBIN. 10.8 g/dL (14.0-18.0); MEAN CORPUSCULAR VOLUME 85.9 fL (80.0-94.0); MEAN PLATELET VOLUME 9.1 fl (7.4-10.4); PLATELET 241 x1000/uL (130-400); RED BLOOD CELL COUNT 3.86 mill/uL (4.7-6.1); RED CELL DISTRIBUTION WIDTH 16.8 % (11.6-14.6)
[2019-12-04 06:06] LABS: CHLORIDE 98 mEq/L (98-107)
[2019-12-04] MEDS: BLOOD SUGAR DIAGNOSTIC STRIP TEST SCH ×4 (06:31→21:01)
[2019-12-04] MEDS: INSULIN LISPRO 100 UNITS/ML SUBCUT SCH ×4 (06:37→21:09)
[2019-12-04 08:01] LABS: NUCLEATED RED BLOOD CELLS 2 /100 WBC; PLATELET ESTIMATE NORMAL
[2019-12-04] MEDS: FLUCONAZOLE 100MG TABLET PO SCH (09:02)
[2019-12-04] MEDS: APIXABAN 5 MG TABLET PO SCH ×2 (09:02→16:03)
[2019-12-04] MEDS: ASPIRIN 81MG EC TABLET PO SCH (09:02)
[2019-12-04] MEDS: LEVOFLOXACIN 250MG TABLET PO SCH (10:28)
[2019-12-04] MEDS ORDERED: POTASSIUM CHLORIDE 20MEQ TABLET SR PO NR (15:30)
[2019-12-05] VITALS: BP 121/67
[2019-12-05] MEDS: IPRATROPIUM/ALBUTEROL 0.5-3(2.5)MG/3ML NEB NEB SCH ×3 (02:11→14:31)
[2019-12-05] MEDS: METHYLPREDNISOLONE SOD SUCC 40 MG/ML VIAL IV SCH ×2 (03:14→14:35)
[2019-12-05 04:00] VITALS: BP 108/53
[2019-12-05] MEDS: BLOOD SUGAR DIAGNOSTIC STRIP TEST SCH ×2 (07:40→12:40)
[2019-12-05 08:00] VITALS: BP 128/79
[2019-12-05 08:27] LABS: CHLORIDE 98 mEq/L (98-107)
[2019-12-05 08:40] LABS: HEMATOCRIT. 36.1 % (42.0-52.0); HEMOGLOBIN. 11.7 g/dL (14.0-18.0); MEAN PLATELET VOLUME 9.2 fl (7.4-10.4); PLATELET 234 x1000/uL (130-400); RED BLOOD CELL COUNT 4.19 mill/uL (4.7-6.1); RED CELL DISTRIBUTION WIDTH 16.7 % (11.6-14.6)
[2019-12-05] MEDS: APIXABAN 5 MG TABLET PO SCH (10:14)
[2019-12-05] MEDS: ASPIRIN 81MG EC TABLET PO SCH (10:14)
[2019-12-05] MEDS: FLUCONAZOLE 100MG TABLET PO SCH (10:14)
[2019-12-05] MEDS: LEVOFLOXACIN 250MG TABLET PO SCH (10:14)
[2019-12-05] MEDS: INSULIN LISPRO 100 UNITS/ML SUBCUT SCH ×2 (10:20→14:39)
[2019-12-05 12:00] VITALS: BP 100/58
[2019-12-05] MEDS ORDERED: APIX5TAB MT (12:46)
[2019-12-05] MEDS ORDERED: ALBU05 NEB (12:46)
[2019-12-05] MEDS ORDERED: LEVO500T2 PO (12:46)
[2019-12-05] MEDS ORDERED: P20 PO (12:46)
[2019-12-05 13:15] VITALS: BP 100/58
[2019-12-05 16:33] LABS: PLATELET ESTIMATE NORMAL
== END 2019-12-05 15:59 | disposition home health service (06) | DRG 291 ==
LOC: ER 15:23 → CVICU 20:09 → EDBEDREQSVC 20:15 → EDBEDREQTM 20:15 → ENRESERV 11-30 13:03 → 7WST 12-04 18:10
PROVIDERS: ADMIT Internal Medicine; ATTEND Internal Medicine
PROC: 05HY33Z Insertion of Infusion Device into Upper Vein, Percutaneous Approach (ICD-10-PCS; principal; 2019-11-29)
PROC: B54BZZA Ultrasonography of Right Lower Extremity Veins, Guidance (ICD-10-PCS; 2019-11-29)
DX: I13.0 Hypertensive heart and chronic kidney disease with heart failure and stage 1 through stage 4 chronic kidney disease, or unspecified chronic kidney disease (principal); I50.43 Acute on chronic combined systolic (congestive) and diastolic (congestive) heart failure; R57.0 Cardiogenic shock; E87.2 Acidosis; I48.19 Other persistent atrial fibrillation; J98.11 Atelectasis; N39.0 Urinary tract infection, site not specified; N18.9 Chronic kidney disease, unspecified; J43.9 Emphysema, unspecified; I71.9 Aortic aneurysm of unspecified site, without rupture; I35.1 Nonrheumatic aortic (valve) insufficiency; I27.20 Pulmonary hypertension, unspecified; E11.22 Type 2 diabetes mellitus with diabetic chronic kidney disease; D64.9 Anemia, unspecified; E78.5 Hyperlipidemia, unspecified; E87.6 Hypokalemia; G90.8 Other disorders of autonomic nervous system; F03.90 Unspecified dementia, unspecified severity, without behavioral disturbance, psychotic disturbance, mood disturbance, and anxiety; N40.0 Benign prostatic hyperplasia without lower urinary tract symptoms; R00.1 Bradycardia, unspecified; T50.905A Adverse effect of unspecified drugs, medicaments and biological substances, initial encounter; Z79.01 Long term (current) use of anticoagulants; Z88.1 Allergy status to other antibiotic agents; Z79.84 Long term (current) use of oral hypoglycemic drugs; Z87.01 Personal history of pneumonia (recurrent); Z79.899 Other long term (current) drug therapy; Z87.891 Personal history of nicotine dependence; Z99.81 Dependence on supplemental oxygen; Z79.82 Long term (current) use of aspirin; Y92.89 Other specified places as the place of occurrence of the external cause
CPT/HCPCS: 36415; 36600; 71045; 80048; 80053; 80061; 80162; 81003; 82375; 82550; 82553; 82805; 82962; 83880; 84443; 84484; 85025; 85027; 87106; 93005; 93306; 94640; 96365; 97162; 99291; J1265; J1650; J1815; J2405; J2920; J3490; J7030; A4315

== ENCOUNTER 2020-01-16 21:59 | Inpatient (IN) | payer MEDICARE ==
[~2020-01-16] VITALS: Ht 182.9 cm; Wt 95.0 kg
[~2020-01-16 21:59] MED LIST changes: +ALBU05 NEB; -CARSR90 MT; -CARV6.2548 MT; -FURO80TA3 MT; +LEVO500T2 PO; +P20 PO; -POTA25TA8 PO; -THE3 MT
[2020-01-16] MEDS ORDERED: ONDANSETRON HCL 4MG/2ML INJ IV STA (23:17)
[2020-01-16] MEDS ORDERED: FUROSEMIDE 40MG/4ML VIAL IV ONE (23:30)
[2020-01-16] MEDS ORDERED: NITROGLYCERIN OINT 1GM/INCH UDPKT TD ONE (23:30)
[2020-01-17 00:20] LABS: BASOPHILS % 0.8 % (0.0-2.0); EOSINOPHILS % 1.5 % (0.0-5.0); HEMATOCRIT. 28.9 % (42.0-52.0); HEMOGLOBIN. 9.2 g/dL (14.0-18.0); LYMPHOCYTES % 15.5 % (20.0-50.0); MEAN CORPUSCULAR VOLUME 78.6 fL (80.0-94.0); MEAN PLATELET VOLUME 9.3 fl (7.4-10.4); MONOCYTES % 10.7 % (2.0-8.0); NEUTROPHILS % 71.5 % (40.0-76.0); PLATELET 202 x1000/uL (130-400); RED BLOOD CELL COUNT 3.68 mill/uL (4.7-6.1); RED CELL DISTRIBUTION WIDTH 18.7 % (11.6-14.6)
[2020-01-17 00:25] LABS: CHLORIDE 103 mEq/L (98-107)
[2020-01-17] MEDS ORDERED: VANCOMYCIN 1 G PREMIX 200 ML IV ONE (00:45)
[2020-01-17] MEDS ORDERED: PIPERACILLIN/TAZ 3.375G PREMIX 50 ML IV ONE (00:45)
[2020-01-17 03:33] LABS: BG BASE EXCESS -2.2 mmol/L (-2.0-2.0); BG BILEVEL POS AIRWAY PRESSURE 15/5; BG CARBOXYHEMOGLOBIN 0.4 % (0.5-1.5); BG DEOXYHEMOGLOBIN 2.2 % (0.0-5.0); BG FRACTION INSPIRED OXYGEN 40; BG HCO3 ACT 22.1 mmol/L (22.0-26.0); BG METHEMOGLOBIN 0.2 % (0.0-1.5); BG OXYGEN SATURATION 97.8 % (92.0-98.5); BG OXYHEMOGLOBIN 97.2 % (94.0-97.0); BG PCO2 35.7 mmHg (35.0-45.0); BG PH 7.409 (7.350-7.450); BG PO2 116.7 mmHg (75.0-100.0); BG SAMPLE SITE RIGHT BRACHIAL; BG TOTAL HEMOGLOBIN 9.9 g/dL (12.0-18.0); BG VENT MODE MASK - BIPAP
[2020-01-17] MEDS ORDERED: CLONIDINE 0.1MG TABLET PO PRN (10:45)
[2020-01-17] MEDS ORDERED: ONDANSETRON HCL 4MG/2ML INJ IV PRN (10:45)
[2020-01-17] MEDS ORDERED: ACETAMINOPHEN 650MG SUPP PR PRN (10:45)
[2020-01-17] MEDS ORDERED: DOCUSATE SODIUM 100MG CAPSULE PO PRN (10:45)
[2020-01-17] MEDS ORDERED: MAGNESIUM/ALUMINUM HYDROXIDE/SIMETHICONE 30ML UDC PO PRN (10:45)
[2020-01-17] MEDS ORDERED: HYDROCODONE/ACETAMINOPHEN 5/325MG TABLET PO PRN (10:45)
[2020-01-17] MEDS ORDERED: DIPHENHYDRAMINE 50MG/ML VIAL IV PRN (10:45)
[2020-01-17] MEDS ORDERED: GUAIFENESIN 200MG/10ML SUGAR FREE UDC PO PRN (10:45)
[2020-01-17] MEDS ORDERED: ACETAMINOPHEN 325MG TABLET PO PRN (10:45)
[2020-01-17] MEDS ORDERED: LORAZEPAM 0.5MG TABLET PO PRN (10:45)
[2020-01-17] MEDS ORDERED: IPRATROPIUM/ALBUTEROL 0.5-3(2.5)MG/3ML NEB NEB PRN (10:45)
[2020-01-17] MEDS: METHYLPREDNISOLONE SOD SUCC 40 MG/ML VIAL IV SCH ×2 (11:29→18:02)
[2020-01-17] MEDS ORDERED: LEVOFLOXACIN 500MG PREMIX 100 ML IV SCH (11:30)
[2020-01-17] MEDS ORDERED: HYDRALAZINE 20MG/ML VIAL IV PRN (13:00)
[2020-01-17 13:04] LABS: BASOPHILS % 0.8 % (0.0-2.0); EOSINOPHILS % 1.9 % (0.0-5.0); HEMATOCRIT. 27.6 % (42.0-52.0); HEMOGLOBIN. 8.8 g/dL (14.0-18.0); LYMPHOCYTES % 14.7 % (20.0-50.0); MEAN CORPUSCULAR HEMOGLOBIN 24.7 pg (28.0-32.0); MEAN CORPUSCULAR VOLUME 77.9 fL (80.0-94.0); MEAN PLATELET VOLUME 9.1 fl (7.4-10.4); MONOCYTES % 10.4 % (2.0-8.0); NEUTROPHILS % 72.2 % (40.0-76.0); PLATELET 187 x1000/uL (130-400); RED BLOOD CELL COUNT 3.54 mill/uL (4.7-6.1); RED CELL DISTRIBUTION WIDTH 18.1 % (11.6-14.6)
[2020-01-17 13:12] LABS: INR 1.5; PROTHROMBIN TIME 16.3 sec (9.6-11.0)
[2020-01-17 13:22] LABS: CHLORIDE 104 mEq/L (98-107)
[2020-01-17 16:00] VITALS: BP 96/61
[2020-01-17 16:04] VITALS: BP 98/68
[2020-01-17 16:19] VITALS: BP 113/61
[2020-01-17 17:52] LABS: CREATINE KINASE MB FRACTION 4.3 ng/mL (0.5-3.6)
[2020-01-17 18:00] VITALS: BP 108/62
[2020-01-17] MEDS: FUROSEMIDE 40MG/4ML VIAL IVP SCH (18:02)
[2020-01-17 19:15] LABS: CLARITY URINE CLEAR (CLEAR); COLOR URINE YELLOW (YELLOW); KETONES URINE NEGATIVE (NEGATIVE); LEUKOCYTE ESTERASE URINE 3+ (NEGATIVE); NITRITE URINE NEGATIVE (NEGATIVE); OCCULT BLOOD URINE 1+ (NEGATIVE); PROTEIN URINE NEGATIVE (NEGATIVE); SPECIFIC GRAVITY URINE 1.008 (1.005-1.030); UROBILINOGEN URINE 0.2 E.U./dL (0.2-1.0)
[2020-01-17 19:28] LABS: CANNABINOID URINE SCREEN NEGATIVE (NEGATIVE); OPIATES URINE SCREEN NEGATIVE (NEGATIVE); PHENCYCLIDINE URINE SCREEN NEGATIVE (NEGATIVE)
[2020-01-17 19:29] LABS: *AMPHETAMINES SCREEN URINE NEGATIVE (NEGATIVE); *BARBITURATES SCREEN URINE NEGATIVE (NEGATIVE); *BENZODIAZEPINES SCREEN URINE NEGATIVE (NEGATIVE); *COCAINE SCREEN URINE NEGATIVE (NEGATIVE)
[2020-01-17 19:30] LABS: METHADONE URINE SCREEN NEGATIVE (NEGATIVE)
[2020-01-17 20:00] VITALS: BP 95/42
[2020-01-17] MEDS: IPRATROPIUM/ALBUTEROL 0.5-3(2.5)MG/3ML NEB NEB SCH (20:08)
[2020-01-17] MEDS: MONTELUKAST SODIUM 10MG TABLET PO SCH (20:56)
[2020-01-17] MEDS ORDERED: NA PHOS,M-B/NA PHOS,DI-BA ENEMA 118ML PR PRN (21:00)
[2020-01-17 23:17] LABS: CREATINE KINASE MB FRACTION 4.2 ng/mL (0.5-3.6)
[2020-01-18] VITALS (11 sets, daily range): BP systolic 79–113; BP diastolic 44–67
[2020-01-18] MEDS: IPRATROPIUM/ALBUTEROL 0.5-3(2.5)MG/3ML NEB NEB SCH ×4 (01:16→21:20)
[2020-01-18] MEDS: METHYLPREDNISOLONE SOD SUCC 40 MG/ML VIAL IV SCH ×3 (01:31→18:16)
[2020-01-18 06:18] LABS: BASOPHILS % 0.1 % (0.0-2.0); HEMATOCRIT. 29.5 % (42.0-52.0); HEMOGLOBIN. 9.2 g/dL (14.0-18.0); LYMPHOCYTES % 25.2 % (20.0-50.0); MEAN CORPUSCULAR HEMOGLOBIN 24.5 pg (28.0-32.0); MEAN CORPUSCULAR VOLUME 78.8 fL (80.0-94.0); MONOCYTES % 4.9 % (2.0-8.0); NEUTROPHILS % 69.8 % (40.0-76.0); PLATELET 206 x1000/uL (130-400); RED BLOOD CELL COUNT 3.75 mill/uL (4.7-6.1); RED CELL DISTRIBUTION WIDTH 18.6 % (11.6-14.6)
[2020-01-18 06:36] LABS: CHLORIDE 103 mEq/L (98-107)
[2020-01-18] MEDS: ASPIRIN 81MG EC TABLET PO SCH (08:50)
[2020-01-18] MEDS: FUROSEMIDE 40MG/4ML VIAL IVP SCH ×2 (08:51→18:16)
[2020-01-18] MEDS ORDERED: FUROSEMIDE 40MG/4ML VIAL IVP SCH (09:00)
[2020-01-18] MEDS ORDERED: LEVOFLOXACIN 500MG PREMIX 100 ML IV SCH (11:00)
[2020-01-18] MEDS ORDERED: HYDROCODONE/ACETAMINOPHEN 5/325MG TABLET PO PRN (14:30)
[2020-01-18] MEDS ORDERED: MIDODRINE HCL 5MG TABLET PO NR (14:30)
[2020-01-18] MEDS ORDERED: CARV3.1242 PO (15:42)
[2020-01-18] MEDS ORDERED: ZOLP5TAB8 PO (15:43)
[2020-01-18] MEDS ORDERED: POTA-79 PO (15:44)
[2020-01-18] MEDS ORDERED: DIGO125T80 PO (15:44)
[2020-01-18] MEDS ORDERED: ALBU90AE INH (15:45)
[2020-01-18] MEDS: MIDODRINE HCL 5MG TABLET PO SCH (18:17)
[2020-01-18] MEDS: MONTELUKAST SODIUM 10MG TABLET PO SCH (21:42)
[2020-01-19] VITALS (9 sets, daily range): BP systolic 82–128; BP diastolic 45–87
[2020-01-19] MEDS: METHYLPREDNISOLONE SOD SUCC 40 MG/ML VIAL IV SCH ×3 (01:11→17:09)
[2020-01-19] MEDS: IPRATROPIUM/ALBUTEROL 0.5-3(2.5)MG/3ML NEB NEB SCH ×4 (03:09→20:46)
[2020-01-19 07:05] LABS: HEMATOCRIT. 27.9 % (42.0-52.0); HEMOGLOBIN. 8.9 g/dL (14.0-18.0); MEAN CORPUSCULAR HEMOGLOBIN 24.7 pg (28.0-32.0); MEAN CORPUSCULAR VOLUME 77.1 fL (80.0-94.0); MEAN PLATELET VOLUME 9.1 fl (7.4-10.4); PLATELET 195 x1000/uL (130-400); RED BLOOD CELL COUNT 3.62 mill/uL (4.7-6.1); RED CELL DISTRIBUTION WIDTH 18.7 % (11.6-14.6)
[2020-01-19] MEDS: FUROSEMIDE 40MG/4ML VIAL IVP SCH ×2 (09:00→12:44)
[2020-01-19 09:14] LABS: NUCLEATED RED BLOOD CELLS 3 /100 WBC
[2020-01-19 09:15] LABS: PLATELET ESTIMATE NORMAL
[2020-01-19] MEDS: MIDODRINE HCL 5MG TABLET PO SCH ×3 (09:19→17:09)
[2020-01-19] MEDS: ASPIRIN 81MG EC TABLET PO SCH (09:19)
[2020-01-19] MEDS ORDERED: LEVOFLOXACIN 500MG PREMIX 100 ML IV SCH (11:00)
[2020-01-19] MEDS ORDERED: LEVOFLOXACIN 250MG PREMIX 50 ML IV SCH (11:00)
[2020-01-19] MEDS: CEFTRIAXONE 1 G PREMIX 50 ML IV SCH (17:09)
[2020-01-19] MEDS: APIXABAN 5 MG TABLET PO SCH (17:09)
[2020-01-19] MEDS: MONTELUKAST SODIUM 10MG TABLET PO SCH (21:09)
[2020-01-20] VITALS (8 sets, daily range): BP systolic 99–137; BP diastolic 54–78
[2020-01-20] MEDS: METHYLPREDNISOLONE SOD SUCC 40 MG/ML VIAL IV SCH ×3 (01:17→17:14)
[2020-01-20] MEDS: IPRATROPIUM/ALBUTEROL 0.5-3(2.5)MG/3ML NEB NEB SCH ×4 (01:27→20:32)
[2020-01-20 07:18] LABS: HEMATOCRIT. 29.8 % (42.0-52.0); HEMOGLOBIN. 9.1 g/dL (14.0-18.0); MEAN CORPUSCULAR VOLUME 78.3 fL (80.0-94.0); MEAN PLATELET VOLUME 9.6 fl (7.4-10.4); PLATELET 219 x1000/uL (130-400); RED BLOOD CELL COUNT 3.81 mill/uL (4.7-6.1); RED CELL DISTRIBUTION WIDTH 18.8 % (11.6-14.6)
[2020-01-20] MEDS: MIDODRINE HCL 5MG TABLET PO SCH ×3 (07:40→17:14)
[2020-01-20] MEDS: APIXABAN 5 MG TABLET PO SCH ×2 (09:02→17:14)
[2020-01-20] MEDS: ASPIRIN 81MG EC TABLET PO SCH (09:02)
[2020-01-20] MEDS: FUROSEMIDE 40MG/4ML VIAL IVP SCH (09:02)
[2020-01-20 13:54] LABS: NUCLEATED RED BLOOD CELLS 2 /100 WBC
[2020-01-20 13:55] LABS: PLATELET ESTIMATE NORMAL
[2020-01-20] MEDS: CEFTRIAXONE 1 G PREMIX 50 ML IV SCH (16:37)
[2020-01-20] MEDS: MONTELUKAST SODIUM 10MG TABLET PO SCH (21:17)
[2020-01-21] VITALS: BP 165/55
[2020-01-21] MEDS: METHYLPREDNISOLONE SOD SUCC 40 MG/ML VIAL IV SCH ×3 (01:34→18:00)
[2020-01-21] MEDS: IPRATROPIUM/ALBUTEROL 0.5-3(2.5)MG/3ML NEB NEB SCH ×3 (02:19→14:49)
[2020-01-21 04:00] VITALS: BP 136/72
[2020-01-21 06:40] LABS: HEMOGLOBIN 8.9 g/dL (14.0-18.0); MEAN CORPUSCULAR HEMOGLOBIN 24.4 pg (28.0-32.0); MEAN CORPUSCULAR VOLUME 76.5 fL (80.0-94.0); PLATELET 203 x1000/uL (130-400); RED BLOOD CELL COUNT 3.66 mill/uL (4.7-6.1); RED CELL DISTRIBUTION WIDTH 18.5 % (11.6-14.6)
[2020-01-21 07:40] VITALS: BP 134/75
[2020-01-21] MEDS: APIXABAN 5 MG TABLET PO SCH ×2 (09:33→16:42)
[2020-01-21] MEDS: ASPIRIN 81MG EC TABLET PO SCH (09:33)
[2020-01-21] MEDS: FUROSEMIDE 40MG/4ML VIAL IVP SCH (09:33)
[2020-01-21] MEDS: MIDODRINE HCL 5MG TABLET PO SCH ×3 (09:35→16:43)
[2020-01-21 12:00] VITALS: BP 129/73
[2020-01-21] MEDS ORDERED: DEXTROSE 50% WATER 50ML SYRINGE IV PRN (13:00)
[2020-01-21] MEDS: INSULIN LISPRO 100 UNITS/ML SUBCUT SCH ×2 (13:36→18:00)
[2020-01-21 15:40] VITALS: BP 116/77
[2020-01-21] MEDS: CEFTRIAXONE 1 G PREMIX 50 ML IV SCH (16:41)
[2020-01-21 17:17] VITALS: BP 110/71
[2020-01-21] MEDS ORDERED: BLOOD SUGAR DIAGNOSTIC STRIP TEST SCH (17:30)
== END 2020-01-21 19:00 | disposition home health service (06) | DRG 291 ==
LOC: ER 21:59 → EDUNIT# 21:59 → 5EST 01-17 04:19 → EDBEDREQ 01-17 04:24 → EDBEDREQSVC 01-17 04:24 → EDBEDREQDT 01-17 04:24 → EDBEDREQTM 01-17 04:24 → SUPCPDRO 01-17 10:37 → ENRESERV 01-17 14:50
PROVIDERS: ADMIT Internal Medicine; ATTEND Internal Medicine
PROC: 5A09357 Assistance with Respiratory Ventilation, Less than 24 Consecutive Hours, Continuous Positive Airway Pressure (ICD-10-PCS; principal; 2020-01-17)
DX: I13.0 Hypertensive heart and chronic kidney disease with heart failure and stage 1 through stage 4 chronic kidney disease, or unspecified chronic kidney disease (principal); J18.9 Pneumonia, unspecified organism; I50.43 Acute on chronic combined systolic (congestive) and diastolic (congestive) heart failure; J96.90 Respiratory failure, unspecified, unspecified whether with hypoxia or hypercapnia; J44.1 Chronic obstructive pulmonary disease with (acute) exacerbation; E87.2 Acidosis; I48.20 Chronic atrial fibrillation, unspecified; D64.9 Anemia, unspecified; I27.20 Pulmonary hypertension, unspecified; E11.22 Type 2 diabetes mellitus with diabetic chronic kidney disease; N18.9 Chronic kidney disease, unspecified; E11.51 Type 2 diabetes mellitus with diabetic peripheral angiopathy without gangrene; F03.90 Unspecified dementia, unspecified severity, without behavioral disturbance, psychotic disturbance, mood disturbance, and anxiety; E78.5 Hyperlipidemia, unspecified; I89.0 Lymphedema, not elsewhere classified; Z87.891 Personal history of nicotine dependence; Z99.81 Dependence on supplemental oxygen; Z88.2 Allergy status to sulfonamides; Z79.899 Other long term (current) drug therapy; Z79.82 Long term (current) use of aspirin; Z79.84 Long term (current) use of oral hypoglycemic drugs
CPT/HCPCS: 36415; 36600; 71045; 80048; 80053; 80305; 81003; 82375; 82550; 82553; 82805; 82962; 83605; 83735; 83880; 84439; 84443; 84484; 85025; 85027; 86850; 86900; 87077; 87186; 93005; 93970; 94640; 94660; 97162; 97530; 99285; J0696; J1815; J1940; J1956; J2405; J2543; J2920; J3370